=== PATIENT | male | born 1940 | race Caucasian/White ===

== ENCOUNTER → 2016-10-24 | Outpatient (CLI) | payer MEDICARE, BC ==
[2016-10-24 09:11] LABS: CH 31.3; CHCM 34.3; HCT 41.6 % (39.0-53.0); HGB 14.8 gm/dL (13.0-17.5); MCH 32.6 pg (25.0-35.0); MCHC 35.5 g/dL (31.0-37.0); MCV 91.6 fL (80.0-100.0); RBC 4.53 m/uL (4.30-5.90); RDW 13.1 % (11.5-15.5); WBC 4.5 k/uL (3.8-10.6)
[2016-10-24 09:14] LABS: Anion Gap 8 mmol/L; Blood Urea Nitrogen 24 mg/dL (9-20); Carbon Dioxide 27 mmol/L (22-30); Chloride 107 mmol/L (98-107); Non-African American GFR(MDRD) >60 (>60 ml/min/1.73 sqM); Potassium 4.1 mmol/L (3.5-5.1); Sodium 142 mmol/L (137-145)
== END ==
LOC: LABWHC1 08:24
PROVIDERS: ATTEND Internal Medicine Interventional Cardiology
DX: I25.10 Atherosclerotic heart disease of native coronary artery without angina pectoris (principal)
CPT/HCPCS: 36415; 80051; 82565; 84520; 85027

== ENCOUNTER 2016-11-03 07:42 | Day surgery (SDC) | payer MEDICARE, BC ==
[2016-10-31 08:45] VITALS: BMI 32.0
[~2016-11-03 07:42] MED LIST: ALPRAZolam 0.25 MG TAB PO PRN; ALPRAZolam 0.5 MG TAB PO PRN; ASPIRIN 325 MG TAB PO STA; ATORVASTATIN 80 MG TAB PO STA; NITROGLYCERIN SL TABS 0.4 MG TAB SUBLINGUAL PRN; SODIUM CHLORIDE 0.9% 1,000 ML in EMPTY BAG 1 BAG IV ONE
[2016-11-03 08:31] VITALS: PULSE 67; TEMP 97.5
[2016-11-03] MEDS ORDERED: LIDOCAINE 2% INJ 20 MG/ML (20 ML MDV) ONE (08:42)
[2016-11-03] MEDS ORDERED: MIDAZOLAM 2 MG/2 ML VIAL ONE (08:42)
[2016-11-03] MEDS ORDERED: VERAPAMIL 2.5 MG/ML 2 ML AMP ONE (08:42)
[2016-11-03] MEDS ORDERED: MIDAZOLAM 2 MG/2 ML VIAL IV ONE (10:04)
[2016-11-03] MEDS ORDERED: LIDOCAINE 2% INJ 20 MG/ML SQ ONE (10:06)
[2016-11-03] MEDS ORDERED: HEPARIN SODIUM 1,000 UNIT/ML VIAL ONE (10:07)
[2016-11-03] MEDS ORDERED: VERAPAMIL SYRINGE (5 MG/10 ML) INTRAARTER ONE ×2 (10:08→10:31)
[2016-11-03] MEDS ORDERED: IOHEXOL 350 MG/ML 125ML BOTTLE INJ ONE (10:33)
[2016-11-03] MEDS ORDERED: RX INFO: IV CONTRAST WAS GIVEN 1 EACH MISC MISCELLANE PRN (10:38)
[2016-11-03] MEDS ORDERED: SODIUM CHLORIDE 0.9% 1,000 ML IV SCH (10:45)
[2016-11-03 16:50] VITALS: RESP 20
[2016-11-03 16:51] VITALS: BP 117/64
--- NOTE | 2016-11-03 22:31 | CC ---
DATE OF SERVICE: 11/03/2016 PERFORMING PHYSICIAN: Justen Ricardo M.D., instructor business education. PROCEDURE PERFORMED: Selective right and left coronary angiogram. INDICATION: This is a pleasant 75-year-old gentleman who was experiencing chest discomfort and underwent myocardial perfusion imaging stress test which showed apical ischemia. The decision was made for heart catheterization. APPROACH: Right radial artery. COMPLICATIONS: None. LEVEL OF SEDATION: Moderate with a sedation length of 29 minutes. PROCEDURE DESCRIPTION: After obtaining informed consent, the patient was brought to the cardiac laboratory immunologist. The right radial artery was cannulated using micropuncture technique. The micropuncture wire passed easily. Then I placed a 6 [place] sheath in the right radial artery. Subsequently I did selective right and left coronary angiogram using JR4 and JL3.5 catheters. The procedure was completed without any complication. SELECTIVE CORONARY ANGIOGRAM: 1. The right coronary artery is a large-caliber vessel. It is a dominant vessel. It is angiographically normal. It bifurcates into PDA and PLV branches; both are angiographically normal. 2. The left main is angiographically normal. It bifurcates into left circumflex and left anterior descending artery. The left circumflex is a large-caliber vessel and a non-dominant vessel. The proximal circumflex appeared to be angiographically normally. The mid circumflex appeared to have mild disease only. The left circumflex in the mid portion gives rise to an OM branch which has an intermediate lesion that appeared to be in the range of 50%. The circumflex continues after that as a small-caliber vessel in the AV groove. 3. Left anterior descending artery. The proximal LAD appeared to have mild disease only. The mid LAD appeared to have mild disease only and gives rise to 2 medium-sized diagonal branches that appeared to be angiographically normal. The LAD continues after that as a small- to medium-caliber vessel without any high-grade stenosis. 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 POST-PROCEDURE MANAGEMENT: 1. Maximize medical treatment. 2. Follow up with the patient.
== END 2016-11-03 16:35 | disposition home or self-care (01) ==
LOC: CATHCVL 07:42
PROVIDERS: ATTEND Internal Medicine Interventional Cardiology
DX: I25.110 Atherosclerotic heart disease of native coronary artery with unstable angina pectoris (principal); R07.89 Other chest pain; R94.39 Abnormal result of other cardiovascular function study; I10 Essential (primary) hypertension; I73.9 Peripheral vascular disease, unspecified; Z79.82 Long term (current) use of aspirin; Z79.899 Other long term (current) drug therapy
CPT/HCPCS: 93454; 99152; 99153; C1769 ×3; C1894; J2001; J2250; J1642; J1644; Q9967

== ENCOUNTER 2016-12-01 10:46 | Day surgery (SDC) | payer MEDICARE, BC ==
[2016-11-27 10:51] VITALS: BMI 32.5
[~2016-12-01 10:46] MED LIST changes: -ALPRAZolam 0.5 MG TAB PO PRN; -ATORVASTATIN 80 MG TAB PO STA; -NITROGLYCERIN SL TABS 0.4 MG TAB SUBLINGUAL PRN
[2016-12-01 11:12] VITALS: RESP 16; TEMP 97.9
[2016-12-01] MEDS ORDERED: SODIUM CHLORIDE 0.9% 1,000 ML IV ONE (11:15)
[2016-12-01 11:25] LABS: Basophils # (A) 0.1 k/uL (0-0.2); Basophils % (A) 1 %; CH 31.1; Eosinophils # (A) 0.4 k/uL (0-0.7); Eosinophils % (A) 7 %; HCT 43.8 % (39.0-53.0); HGB 14.8 gm/dL (13.0-17.5); Luc # (Auto) 0.11; Luc % (Auto) 2; Lymphocytes # (A) 1.3 k/uL (1.0-4.8); Lymphocytes % (A) 20 %; MCH 31.1 pg (25.0-35.0); MCHC 33.9 g/dL (31.0-37.0); MCV 91.8 fL (80.0-100.0); Mean Platelet Volume 7.3; Monocytes # (A) 0.3 k/uL (0-1.0); Monocytes % (A) 5 %; Neutrophils % (A) 65 %; RBC 4.77 m/uL (4.30-5.90); RDW 13.3 % (11.5-15.5); WBC 6.2 k/uL (3.8-10.6); WBC (Perox) 5.94
[2016-12-01 11:38] LABS: Anion Gap 9 mmol/L; Blood Urea Nitrogen 23 mg/dL (9-20); Calcium 9.1 mg/dL (8.4-10.2); Carbon Dioxide 23 mmol/L (22-30); Chloride 108 mmol/L (98-107); Glucose 102 mg/dL (74-99); Non-African American GFR(MDRD) >60 (>60 ml/min/1.73 sqM); Potassium 4.2 mmol/L (3.5-5.1); Sodium 140 mmol/L (137-145)
[2016-12-01] MEDS ORDERED: MIDAZOLAM 2 MG/2 ML VIAL IVP ONE (11:50)
[2016-12-01] MEDS ORDERED: LIDOCAINE 2% INJ 20 MG/ML SQ ONE (11:55)
[2016-12-01] MEDS: VERAPAMIL SYRINGE (5 MG/10 ML) INTRAARTER ONE ×2 (11:55→12:17)
[2016-12-01] MEDS ORDERED: HEPARIN SODIUM 1,000 UNIT/ML VIAL IV ONE (12:00)
[2016-12-01] MEDS ORDERED: IODIXANOL 320 MG/ML 100 ML INTRAARTER ONE (12:19)
[2016-12-01] MEDS ORDERED: SODIUM CHLORIDE 0.9% 1,000 ML IV SCH (12:30)
[2016-12-01 17:09] VITALS: PULSE 69
[2016-12-01 17:11] VITALS: BP 138/77
--- NOTE | 2016-12-02 06:05 | PCN ---
DATE OF PROCEDURE: 12/01/2016 PERIPHERAL ANGIOGRAM PERFORMING PHYSICIAN: Justen Ricardo MD, watershed program manager. PROCEDURE PERFORMED: 1. An abdominal aortogram. 2. Bilateral lower extremity runoff. INDICATION: This is a pleasant 75-year-old male patient who was experiencing bilateral lower extremity discomfort consistent with intermittent claudication. The angiogram for definitive diagnosis. APPROACH: Right radial artery. COMPLICATIONS: None. LEVEL OF SEDATION: Moderate with a sedation length of 25 minutes. PROCEDURE DESCRIPTION: After obtaining an informed consent, the patient was brought to the cardiac mechanical laboratory technician. Right radial artery was cannulated using micropuncture technique. The micropuncture wire passed easily, then I placed 5 [place]ian sheath in the right radial artery. Subsequently I gave the patient 2 mg of verapamil IA and 3000 of heparin IV. After that, I did an abdominal aortogram and bilateral lower extremity runoff using 5 Bel[place]ian pigtail catheter which was initially placed at the level of the renal arteries and it was advanced into above the bifurcation of the aorta to right and left common iliac arteries. The procedure was completed without any complication. SELECTIVE PERIPHERAL ANGIOGRAM: 1. The aorta is angiographically normal. 2. Common iliac arteries: The right and left common iliac arteries are angiographically normal. 3. External iliac arteries: The right and left external iliac arteries are angiographically normal. 4. Common femoral arteries: The right and left common femoral arteries are angiographically normal. 5. PROFUNDA: The right and left profunda are angiographically normal. 6. SFA: The right and left SFA are angiographically normal. 7. POPLITEALS: The right and left popliteals are angiographically normal. 8. BELOW THE KNEE: There are 3 vessels runoff below the knee bilaterally. The left anterior tibia artery has disease in the midportion of about 60% to 70%. CONCLUSION: 1. No evidence of aortoiliac disease. 2. No evidence of fem-pop disease. 3. There is intermediate disease involving the left anterior tibial artery.
--- NOTE | 2016-12-10 08:21 | IR ---
EXAMINATION TYPE: IR angio abdominal w runoff DATE OF EXAM: 12/01/2016 COMPARISON: NONE HISTORY: Peripheral vascular occlusive disease. Fluoroscopy was provided to the referring clinician. See dictated report from cardiology.
== END 2016-12-01 18:38 | disposition home or self-care (01) ==
LOC: CATHCVL 10:46
PROVIDERS: ATTEND Internal Medicine Interventional Cardiology
DX: I77.9 Disorder of arteries and arterioles, unspecified (principal); I73.9 Peripheral vascular disease, unspecified; I10 Essential (primary) hypertension; E78.5 Hyperlipidemia, unspecified; R94.39 Abnormal result of other cardiovascular function study; Z90.5 Acquired absence of kidney; C80.1 Malignant (primary) neoplasm, unspecified; Z79.82 Long term (current) use of aspirin; Z79.899 Other long term (current) drug therapy
CPT/HCPCS: 36200; 75625; 75716; 80048; 85025; 99152; 99153; C1769 ×3; C1894; J2001; J2250; Q9967; J1644

== ENCOUNTER → 2018-03-25 | Outpatient (CLI) | payer MEDICARE, BC ==
--- NOTE | 2018-03-25 16:28 | FL ---
EXAMINATION: Cervical and Thoracic Esophagram DATE OF EXAM: 03/25/2018 CLINICAL INDICATION: 77-year-old male complaining of heartburn, feeling of food getting stuck, dyspha nadia. COMPARISON: None Total Fluoroscopy Time: 2 minutes 23 seconds. Total images: 40 FINDINGS: The swallowing mechanism is normal. There is anterior endplate spondylosis in the cervical spine caus ing slight posterior wall impression along the hypopharynx. No obstructive changes. The thoracic portion has a normal course and caliber. Mild tertiary peristaltic contractions are enco untered. The mucosa is normal and no persistent filling defect is encountered. No hiatal hernia is present. No gastroesophageal reflux is identified. IMPRESSION: Mild tertiary peristaltic contractions. No suspicious mucosal lesion, fixed narrowing, or hiatal michael ia is identified. Gastroesophageal reflux could not be reproduced on this exam.
== END ==
LOC: RADFLWHC 09:27
PROVIDERS: ATTEND Otolaryngology
DX: R13.10 Dysphagia, unspecified (principal)
CPT/HCPCS: 74220

== ENCOUNTER → 2022-11-20 | Outpatient (CLI) | payer MEDICARE, OTHER ==
[2022-11-20 15:06] LABS: Basophils # (A) 0.07 X 10*3/uL (0.00-0.10); Basophils % (A) 1.1 %; Eosinophils # (A) 0.25 X 10*3/uL (0.04-0.35); Eosinophils % (A) 4.1 %; HCT 39.6 % (39.6-50.0); HGB 12.9 g/dL (13.0-17.0); Immature Grans, Automated 0.2 %; Lymphocytes # (A) 0.98 X 10*3/uL (0.90-5.00); Lymphocytes % (A) 15.9 %; MCH 31.8 pg (27.0-32.0); MCHC 32.6 g/dL (32.0-37.0); MCV 97.5 fL (80.0-97.0); Mean Platelet Volume 10.7 fL (9.5-12.2); Monocytes # (A) 0.45 X 10*3/uL (0.20-1.00); Monocytes % (A) 7.3 %; NRBC Per 100 WBC 0 /100 WBCS (0.0-0.0); Neutrophils # (A) 4.39 X 10*3/uL (1.80-7.70); Neutrophils % (A) 71.4 %; Platelet Count 161 X 10*3/uL (140-440); RBC 4.06 X 10*6/uL (4.40-5.60); RDW 14.3 % (11.5-14.5); WBC 6.15 X 10*3/uL (4.50-10.00)
[2022-11-20 15:44] LABS: Ceruloplasmin 22.7 mg/dL (20.0-60.0)
[2022-11-20 15:46] LABS: Protein, Total 6.5 g/dL (6.2-8.2)
[2022-11-20 15:57] LABS: Hepatitis A Antibody IgM Nonreactive (Nonreactive); Hepatitis B Core IgM Nonreactive (Nonreactive); Hepatitis B Surface Antigen Nonreactive (Nonreactive); Hepatitis C IgG Antibody Nonreactive (Nonreactive)
[2022-11-20 23:45] LABS: % Iron Saturation 48.48 (15.00-50.00); African American GFR (CKD) 93.2 (60.0-200.0); Albumin 3.4 g/dL (3.8-4.9); Albumin/Globulin Ratio 1.19 (1.60-3.17); Anion Gap 12.5 mmol/L (10.00-18.00); BUN/Creat Ratio 14.02 Ratio (12.00-20.00); Blood Urea Nitrogen 12.2 mg/dL (9.0-27.0); Calcium 8.8 mg/dL (8.7-10.3); Carbon Dioxide 21.5 mmol/L (20.0-27.5); Globulin 2.8 g/dL (1.6-3.3); Non-African American GFR(CKD) 80.4 (60.0-200.0); Potassium 4.3 mmol/L (3.5-5.5); Total Bilirubin 1.6 mg/dL (0.30-1.20); Total Protein 6.2 g/dL (6.2-8.2)
[2022-11-21 19:30] LABS: Gamma Globulin 1.53 g/dL (0.70-1.50)
== END | disposition home or self-care (01) ==
LOC: LABWHC1 11:35
PROVIDERS: ATTEND Internal Medicine Gastroenterology
DX: K74.60 Unspecified cirrhosis of liver (principal)
CPT/HCPCS: 36415; 80053; 80074; 82103; 82104; 82105; 82390; 82728; 83516; 83540; 83550; 84165; 85025; 86038; 86039; 86803; 87340

== ENCOUNTER → 2023-03-09 | Outpatient (CLI) | payer MEDICARE, OTHER ==
[2023-03-09 21:24] LABS: Basophils # (A) 0.04 X 10*3/uL (0.00-0.10); Basophils % (A) 0.9 %; Eosinophils # (A) 0.32 X 10*3/uL (0.04-0.35); Eosinophils % (A) 6.8 %; HCT 36.2 % (39.6-50.0); HGB 12.1 d/dL (13.0-17.0); Lymphocytes # (A) 0.77 X 10*3/uL (0.90-5.00); Lymphocytes % (A) 16.4 %; MCH 33.1 pg (27.0-32.0); MCHC 33.4 d/dL (32.0-37.0); MCV 98.9 FL (80.0-97.0); Mean Platelet Volume 11.4 FL (9.5-12.2); Monocytes # (A) 0.36 X 10*3/uL (0.20-1.00); Monocytes % (A) 7.7 %; NRBC Per 100 WBC 0 X 10*3/uL (0.00-0.01); Neutrophils # (A) 3.18 X 10*3/uL (1.80-7.70); Neutrophils % (A) 67.8 %; Platelet Count 121 X 10*3/uL (140-440); RBC 3.66 X 10*6/uL (4.40-5.60); RDW 14.2 % (11.5-14.5); WBC 4.69 X 10*3/uL (4.50-10.00)
[2023-03-09 21:43] LABS: ALT 58 U/L (10-49); AST 81 U/L (14-35); Albumin 3.2 d/dL (3.8-4.9); Albumin/Globulin Ratio 1.23 Ratio (1.60-3.17); Alkaline Phosphatase 217 U/L (41-126); BUN/Creat Ratio 19.56 Ratio (12.00-20.00); Blood Urea Nitrogen 17.6 mg/dL (9.0-27.0); Calcium 8.9 mg/dL (8.7-10.3); Carbon Dioxide 23.1 mmol/L (21.6-31.8); Chloride 109 mmol/L (96-109); Globulin 2.6 d/dL (1.6-3.3); Glucose 96 mg/dL (70-110); Potassium 4.2 mmol/L (3.5-5.5); Sodium 141 mmol/L (135-145); Total Bilirubin 1.3 mg/dL (0.3-1.2); Total Protein 5.8 d/dL (6.2-8.2)
== END | disposition home or self-care (01) ==
LOC: LABWHC1 13:43
PROVIDERS: ATTEND Internal Medicine Gastroenterology
DX: K74.60 Unspecified cirrhosis of liver (principal)
CPT/HCPCS: 36415; 80053; 82105; 83516; 85025

== ENCOUNTER 2023-05-22 08:59 | Inpatient (IN) | payer MEDICARE, OTHER ==
--- NOTE | 2023-05-22 10:26 | CT ---
EXAMINATION TYPE: CT brain wo con DATE OF EXAM: 05/22/2023 COMPARISON: None HISTORY: Left sided weakness CT DLP: 1183.[address] of the brain was performed. The ventricles, basal cisterns and sulci overlying the cerebral convexities demonstrate mild enlargem ent. There is no evidence for intracranial hemorrhage or sulcal effacement. There is decreased attenuation about the periventricular white matter and deep white matter of both c erebral hemispheres, compatible with chronic small vessel ischemia. Differential diagnosis does inclu de demyelination. No mass effects are seen.No midline shift. Osseous calvarium is intact. If symptoms persist consider MRI. IMPRESSION: 1. Age related atrophic and chronic small vessel ischemic change without acute intracranial process s een at this time.
--- NOTE | 2023-05-22 10:36 | XR ---
EXAMINATION TYPE: XR chest 2V DATE OF EXAM: 05/22/2023 COMPARISON: 04/10/2010 HISTORY: Shortness of breath TECHNIQUE: Frontal and lateral views of the chest are obtained. FINDINGS: Scattered senescent parenchymal changes noted. Increased basilar density may reflect atelectasis and small effusions. Fluid within the right minor f issure versus linear atelectasis. Heart size is stable. Mediastinal structures are stable and grossly unremarkable. No evidence for hilar prominence. Degenerative changes dorsal spine. IMPRESSION: 1. Increased basilar density may reflect atelectasis and small effusions. Fluid within the right tarik r fissure versus linear atelectasis.
[2023-05-22 10:39] LABS: Basophils % (A) 1 %; Eosinophils # (A) 0.3 k/uL (0-0.7); Eosinophils % (A) 5 %; HGB 12.2 gm/dL (13.0-17.5); Lymphocytes # (A) 0.7 k/uL (1.0-4.8); Lymphocytes % (A) 12 %; MCH 33.6 pg (25.0-35.0); MCHC 32.9 g/dL (31.0-37.0); Macrocytosis Slight; Mean Platelet Volume 8.4; Monocytes # (A) 0.4 k/uL (0-1.0); Monocytes % (A) 7 %; Neutrophils # (A) 4.2 k/uL (1.3-7.7); Neutrophils % (A) 74 %; Platelet Count 114 k/uL (150-450); RBC 3.62 m/uL (4.30-5.90); RDW 14.5 % (11.5-15.5); WBC 5.7 k/uL (3.8-10.6)
--- NOTE | 2023-05-22 10:51 | ED ---
General Adult HPI - General Source: patient, family Mode of arrival: wheelchair Limitations: no limitations <Jeffrey Hurt - Last Filed: 05/22/23 10:52> - General Source: patient, family, RN notes reviewed Mode of arrival: wheelchair Limitations: no limitations <Aleida Alves - Last Filed: 05/22/23 17:16> - General Chief complaint: Weakness Stated complaint: Left side weakness Time Seen by Provider: 05/22/23 10:51 - History of Present Illness Initial comments: 82-year-old male presenting to the ED with a chief complaint of generalized weakness. Per son and patient, was working underneath the sink 2 weeks ago. At that time, notes that he was unable to get up due to generalized weakness. [facility] since then has had this generalized weakness causing him difficulty doing activities of daily living. Son notes that he is having difficulty standing up from the toilet. Additionally, patient states today he is having difficulty urinating. Patient states he is not circumcised. Patient states that his foreskin is blocking his urethra. States that he tried pulling his foreskin back with was unable to do so. Additionally, patient states that he's had intermittent paresthesias and weakness of his arm for the past 2 weeks. Per son, denies confusion. States patient is acting his normal self. (Jeffrey Hurt) In addition to the information above, patient states that he has been increasingly short of breath over the last 2 weeks. He is unable to walk more than a few feet without having to stop and catch his breath. States that he is also becoming short of breath just with conversation. Denies any associated chest pain. States that he does have a history of asthma. (Aleida Alves) - Related Data Home Medications Medication Instructions Recorded Confirmed Albuterol Sulfate [Proventil Hfa] 2 puff INHALATION RT-Q4H PRN 05/22/23 05/22/23 Apixaban [Eliquis] 5 mg PO BID 05/22/23 05/22/23 Metoprolol Tartrate [Lopressor] 25 mg PO BID 05/22/23 05/22/23 Spironolactone [Aldactone] 25 mg PO DAILY 05/22/23 05/22/23 Allergies Allergy/AdvReac Type Severity Reaction Status Date / Time acetaminophen [From [facility]] Allergy "pus in Verified 05/22/23 16:00 eyes" adhesive tape Allergy Rash/Hives Verified 05/22/23 16:00 chlorpheniramine Allergy "pus in Verified 05/22/23 16:00 [From [facility]] eyes" cortisone Allergy Unknown Verified 05/22/23 16:00 gemfibrozil Allergy muscle pain Verified 05/22/23 16:00 oxymetazoline [From [facility]] Allergy "pus in Verified 05/22/23 16:00 eyes" pheniramine [From [facility]] Allergy "pus in Verified 05/22/23 16:00 eyes" phenylephrine [From [facility]] Allergy "pus in Verified 05/22/23 16:00 eyes" pseudoephedrine Allergy "pus in Verified 05/22/23 16:00 [From Kaiden] eyes" Review of Systems ROS Other: All systems not noted in ROS Statement are negative. <Jeffrey Hurt - Last Filed: 05/22/23 10:52> ROS Other: All systems not noted in ROS Statement are negative. <Aleida Alves - Last Filed: 05/22/23 17:16> ROS Statement: Those systems with pertinent positive or pertinent negative responses have been documented in the HPI. Past Medical History Past Medical History: Asthma, Cancer, Chest Pain / Angina, GERD/Reflux, Hyperlipidemia, Hypertension, Osteoarthritis (OA), Skin Disorder, Thyroid Disorder Additional Past Medical History / Comment(s): poor circulation terri legs, hx hiatal hernia, gout, hx gastritis, fungal infection on toes, fatigue, hx rt kidney cancer, has a cane, swelling of terri ankles, liver cirohsis, History of Any Multi-Drug Resistant Organisms: None Reported Past Surgical History: Adenoidectomy, Heart Catheterization, Orthopedic Surgery, Tonsillectomy Additional Past Surgical History / Comment(s): right nephrectomy, rt knee arthroscopy Past Anesthesia/Blood Transfusion Reactions: Motion Sickness Past Psychological History: No Psychological Hx Reported Smoking Status: Former smoker Past Alcohol Use History: Occasional, Rare Past Drug Use History: None Reported - Past Family History Brother(s) Family Medical History: Cancer Father Family Medical History: Cancer <Jeffrey Hurt - Last Filed: 05/22/23 10:52> General Exam Limitations: no limitations General appearance: alert, in no apparent distress Eye exam: Present: normal appearance Neck exam: Present: normal inspection Extremities exam: Present: normal inspection Neurological exam: Present: alert <Jeffrey Hurt - Last Filed: 05/22/23 10:52> Limitations: no limitations General appearance: alert, in no apparent distress Head exam: Present: atraumatic, normocephalic, normal inspection Respiratory exam: Present: wheezes, decreased breath sounds, prolonged expiratory Cardiovascular Exam: Present: normal rhythm, tachycardia Neurological exam: Present: alert, oriented X3, CN II-XII intact Psychiatric exam: Present: normal affect, normal mood Skin exam: Present: warm, dry, intact, normal color. Absent: rash <Aleida Alves - Last Filed: 05/22/23 17:16> Course Vital Signs 05/22/23 05/22/23 05/22/23 09:02 11:08 11:30 Temperature 97.5 F L Pulse Rate 124 H 122 H Respiratory 20 24 13 Rate Blood Pressure 157/77 131/87 O2 Sat by Pulse 99 98 Oximetry 05/22/23 05/22/23 05/22/23 12:00 13:00 13:46 Temperature Pulse Rate 122 H 121 H 120 H Respiratory 14 20 20 Rate Blood Pressure 131/87 117/78 136/83 O2 Sat by Pulse 96 98 98 Oximetry 05/22/23 05/22/23 15:00 16:00 Temperature Pulse Rate 121 H 121 H Respiratory 20 20 Rate Blood Pressure 134/78 132/99 O2 Sat by Pulse 98 98 Oximetry Medical Decision Making - Lab Data Result diagrams: 05/22/23 10:15 <Jeffrey Hurt - Last Filed: 05/22/23 10:52> - Lab Data Result diagrams: 05/22/23 10:15 05/22/23 10:15 - Radiology Data Radiology results: report reviewed, image reviewed <Aleida Alves - Last Filed: 05/22/23 17:16> - Medical Decision Making Quicknote portion performed. Signed Jeffrey Hurt PA-C (Jeffrey Hurt) This is an 82-year-old male who presents to the emergency department for weakness and shortness of breath. Was pt. sent in by a medical professional or institution? @ -No Did you speak to anyone other than the patient for history? @ -No Did you review nursing and triage notes? @ -Yes, and I agree, it is accurate with regards to the patient's symptoms. Were old charts reviewed? @ -No Differential Diagnosis? @ -Differential Dyspnea: Coronary syndrome, arrhythmia, tamponade, asthma, COPD, pulmonary embolism, pneumonia, pneumothorax, pulmonary effusion, anaphylaxis, diabetic ketoacidosis, flailed chest, pulmonary contusion, diaphragmatic rupture, anemia, neuromuscular, this is not meant to be an all-inclusive list. EKG interpreted by me (3pts min.)? @ -EKG interpreted by me demonstrating the following: Sinus tachycardia. Ventricular rate 118 bpm, AL interval 105 ms, QRS duration 93 ms, QTC 492 ms. X-rays interpreted by me (1pt min.)? @ -Chest x-ray obtained. Hydration identifies increased basilar densities. CT interpreted by me (1pt min.)? @ -CTA of the chest obtained. My interpretation identifies bilateral pleural effusions. U/S interpreted by me (1pt. min.)? @ -Not obtained What testing was considered but not performed? (CT, X-rays, U/S, labs)? Why? @ -None What meds were considered but not given? Why? @ -None Did you discuss the management of the patient with other professionals? @ -Yes, Dr. Ascencio, who accepts the patient for admission. Did you reconcile home meds? @ -Yes Was smoking cessation discussed for >3mins.? @ -No Was critical care preformed (if so, how long)? @ -No Were there social determinants of health that impacted care today? How? (Homelessness, low income, unemployed, alcoholism, drug addiction, transportation, low edu. Level, literacy, decrease access to med. care, long-term, rehab)? @ -No Was there de-escalation of care discussed even if they declined? (Discuss DNR or withdrawal of care, Hospice)? @ -No What co-morbidities impacted this encounter? (DM, HTN, Smoking, COPD, CAD, Cancer, CVA, Hep., AIDS, mental health diagnosis, sleep apnea, morbid obesity)? @ -Asthma, CAD, HTN, HLD Was patient admitted / discharged? @ -Admitted. Lab work obtained revealing an elevated d-dimer of 5.07, mildly elevated lactic acid 2.3, mild transaminitis, and a BNP of 3080. Chest x-ray reveals increased basilar density that may reflect atelectasis or small effusi ons. Patient remained tachycardic in the emergency department, and in light of his symptoms and elevated d-dimer, CTA of the chest was obtained. There was a slightly suboptimal contrast bolus and limitation due to breathing motion, however no evidence of a pulmonary embolus was identified. He was noted to have findings consistent with CHF and mild interstitial edema as well as small to moderate right and small left pleural effusions. There is also adjacent bibasilar opacities most likely related to atelectasis, however infiltrates cannot be excluded. He also has markedly generalized anasarca likely related to fluid overload state as well as mild to moderate upper abdominal ascites. Yenny lopez was initially unsure if he has a history of CHF, however when his son returned to the room, he states that he believes that he was diagnosed with this 6 months ago. He is not taking Lasix with any regularity, but states that he took it once about a week ago because he had a pill leftover. Nursing staff had trouble getting a Barreto catheter in the patient due to the swelling, however Dr. Alejandre evaluated the patient and was able to find the urethra so nursing staff could insert the Barreto. Urinalysis was negative for signs of infection. Patient admitted to medicine for CHF exacerbation. Consult placed for cardiology. 40mg IV Lasix administered. Undiagnosed new problem with uncertain prognosis? @ -None Drug Therapy requiring intensive monitoring for toxicity (Heparin, Nitro, Insulin, Cardizem)? @ -None Were any procedures done? @ -None Diagnosis/symptom? @ -CHF exacerbation Acute, or Chronic, or Acute on Chronic? @ -Acute on chronic Uncomplicated (without systemic symptoms) or Complicated (systemic symptoms)? @ -Complicated Side effects of treatment? @ -None Exacerbation, Progression, or Severe Exacerbation] @ -Exacerbation Poses a threat to life or bodily function? @ -Yes Diagnosis/symptom? @ -Weakness, REGGIE Acute, or Chronic, or Acute on Chronic? @ -Acute Uncomplicated (without systemic symptoms) or Complicated (systemic symptoms)? @ -Complicated Side effects of treatment? @ -None Exacerbation, Progression, or Severe Exacerbation] @ -Not applicable Poses a threat to life or bodily function? @ -Yes This case was discussed in detail with the attending ED physician, Dr. Alejandre. Presentation, findings, and treatment plan discussed in detail as well. (Aleida Alves) - Lab Data Lab Results 05/22/23 05/22/23 05/22/23 Range/Units 10:15 10:15 10:15 WBC 5.7 (3.8-10.6) k/uL RBC 3.62 L (4.30-5.90) m/uL Hgb 12.2 L (13.0-17.5) gm/dL Hct 37.0 L (39.0-53.0) % MCV 102.0 H (80.0-100.0) fL MCH 33.6 (25.0-35.0) pg MCHC 32.9 (31.0-37.0) g/dL RDW 14.5 (11.5-15.5) % Plt Count 114 L (150-450) k/uL MPV 8.4 Neutrophils % 74 % Lymphocytes % 12 % Monocytes % 7 % Eosinophils % 5 % Basophils % 1 % Neutrophils # 4.2 (1.3-7.7) k/uL Lymphocytes # 0.7 L (1.0-4.8) k/uL Monocytes # 0.4 (0-1.0) k/uL Eosinophils # 0.3 (0-0.7) k/uL Basophils # 0.0 (0-0.2) k/uL Macrocytosis Slight PT 14.4 H (10.0-12.5) sec INR 1.4 H (<1.2) APTT 28.8 (22.0-30.0) sec D-Dimer (<0.60) mg/L FEU Sodium (137-145) mmol/L Potassium (3.5-5.1) mmol/L Chloride (98-107) mmol/L Carbon Dioxide (22-30) mmol/L Anion Gap mmol/L BUN (9-20) mg/dL Creatinine (0.66-1.25) mg/dL Est GFR (CKD-EPI)AfAm (>60 ml/min/1.73 sqM) Est GFR (CKD-EPI)NonAf (>60 ml/min/1.73 sqM) Glucose (74-99) mg/dL Lactic Ac Sepsis Rflx Plasma Lactic Acid Gavin (0.7-2.0) mmol/L Calcium (8.4-10.2) mg/dL Total Bilirubin (0.2-1.3) mg/dL AST (17-59) U/L ALT (4-49) U/L Alkaline Phosphatase (38-126) U/L Troponin I (0.000-0.034) ng/mL NT-Pro-B Natriuret Pep pg/mL Total Protein (6.3-8.2) g/dL Albumin (3.5-5.0) g/dL Urine Color Yellow Urine Appearance Clear (Clear) Urine pH 5.5 (5.0-8.0) Ur Specific [place] 1.047 H (1.001-1.035) Urine Protein Trace H (Negative) Urine Glucose (UA) Negative (Negative) Urine Ketones Negative (Negative) Urine Blood Negative (Negative) Urine Nitrite Negative (Negative) Urine Bilirubin Negative (Negative) Urine Urobilinogen <2.0 (<2.0) mg/dL Ur Leukocyte Esterase Negative (Negative) Influenza Type A (PCR) (Not Detectd) Influenza Type B (PCR) (Not Detectd) RSV (PCR) (Not Detectd) SARS-CoV-2 (PCR) (Not Detectd) 05/22/23 05/22/23 05/22/23 Range/Units 10:15 10:15 10:15 WBC (3.8-10.6) k/uL RBC (4.30-5.90) m/uL Hgb (13.0-17.5) gm/dL Hct (39.0-53.0) % MCV (80.0-100.0) fL MCH (25.0-35.0) pg MCHC (31.0-37.0) g/dL RDW (11.5-15.5) % Plt Count (150-450) k/uL MPV Neutrophils % % Lymphocytes % % Monocytes % % Eosinophils % % Basophils % % Neutrophils # (1.3-7.7) k/uL Lymphocytes # (1.0-4.8) k/uL Monocytes # (0-1.0) k/uL Eosinophils # (0-0.7) k/uL Basophils # (0-0.2) k/uL Macrocytosis PT (10.0-12.5) sec INR (<1.2) APTT (22.0-30.0) sec D-Dimer (<0.60) mg/L FEU Sodium 141 (137-145) mmol/L Potassium 4.2 (3.5-5.1) mmol/L Chloride 107 (98-107) mmol/L Carbon Dioxide 26 (22-30) mmol/L Anion Gap 8 mmol/L BUN 17 (9-20) mg/dL Creatinine 0.76 (0.66-1.25) mg/dL Est GFR (CKD-EPI)AfAm >90 (>60 ml/min/1.73 sqM) Est GFR (CKD-EPI)NonAf 85 (>60 ml/min/1.73 sqM) Glucose 88 (74-99) mg/dL Lactic Ac Sepsis Rflx Plasma Lactic Acid Gavin 2.3 H* (0.7-2.0) mmol/L Calcium 8.9 (8.4-10.2) mg/dL Total Bilirubin 2.7 H (0.2-1.3) mg/dL AST 83 H (17-59) U/L ALT 52 H (4-49) U/L Alkaline Phosphatase 186 H (38-126) U/L Troponin I 0.020 (0.000-0.034) ng/mL NT-Pro-B Natriuret Pep pg/mL Total Protein 6.8 (6.3-8.2) g/dL Albumin 3.3 L (3.5-5.0) g/dL Urine Color Urine Appearance (Clear) Urine pH (5.0-8.0) Ur Specific [place] (1.001-1.035) Urine Protein (Negative) Urine Glucose (UA) (Negative) Urine Ketones (Negative) Urine Blood (Negative) Urine Nitrite (Negative) Urine Bilirubin (Negative) Urine Urobilinogen (<2.0) mg/dL Ur Leukocyte Esterase (Negative) Influenza Type A (PCR) (Not Detectd) Influenza Type B (PCR) (Not Detectd) RSV (PCR) (Not Detectd) SARS-CoV-2 (PCR) (Not Detectd) 05/22/23 05/22/23 05/22/23 Range/Units 10:15 10:15 10:15 WBC (3.8-10.6) k/uL RBC (4.30-5.90) m/uL Hgb (13.0-17.5) gm/dL Hct (39.0-53.0) % MCV (80.0-100.0) fL MCH (25.0-35.0) pg MCHC (31.0-37.0) g/dL RDW (11.5-15.5) % Plt Count (150-450) k/uL MPV Neutrophils % % Lymphocytes % % Monocytes % % Eosinophils % % Basophils % % Neutrophils # (1.3-7.7) k/uL Lymphocytes # (1.0-4.8) k/uL Monocytes # (0-1.0) k/uL Eosinophils # (0-0.7) k/uL Basophils # (0-0.2) k/uL Macrocytosis PT (10.0-12.5) sec INR (<1.2) APTT (22.0-30.0) sec D-Dimer 5.07 H (<0.60) mg/L FEU Sodium (137-145) mmol/L Potassium (3.5-5.1) mmol/L Chloride (98-107) mmol/L Carbon Dioxide (22-30) mmol/L Anion Gap mmol/L BUN (9-20) mg/dL Creatinine (0.66-1.25) mg/dL Est GFR (CKD-EPI)AfAm (>60 ml/min/1.73 sqM) Est GFR (CKD-EPI)NonAf (>60 ml/min/1.73 sqM) Glucose (74-99) mg/dL Lactic Ac Sepsis Rflx Plasma Lactic Acid Gavin (0.7-2.0) mmol/L Calcium (8.4-10.2) mg/dL Total Bilirubin (0.2-1.3) mg/dL AST (17-59) U/L ALT (4-49) U/L Alkaline Phosphatase (38-126) U/L Troponin I (0.000-0.034) ng/mL NT-Pro-B Natriuret Pep 3080 pg/mL Total Protein (6.3-8.2) g/dL Albumin (3.5-5.0) g/dL Urine Color Urine Appearance (Clear) Urine pH (5.0-8.0) Ur Specific [place] (1.001-1.035) Urine Protein (Negative) Urine Glucose (UA) (Negative) Urine Ketones (Negative) Urine Blood (Negative) Urine Nitrite (Negative) Urine Bilirubin (Negative) Urine Urobilinogen (<2.0) mg/dL Ur Leukocyte Esterase (Negative) Influenza Type A (PCR) Not Detected (Not Detectd) Influenza Type B (PCR) Not Detected (Not Detectd) RSV (PCR) Not Detected (Not Detectd) SARS-CoV-2 (PCR) Not Detected (Not Detectd) 05/22/23 05/22/23 Range/Units 11:12 13:45 WBC (3.8-10.6) k/uL RBC (4.30-5.90) m/uL Hgb (13.0-17.5) gm/dL Hct (39.0-53.0) % MCV (80.0-100.0) fL MCH (25.0-35.0) pg MCHC (31.0-37.0) g/dL RDW (11.5-15.5) % Plt Count (150-450) k/uL MPV Neutrophils % % Lymphocytes % % Monocytes % % Eosinophils % % Basophils % % Neutrophils # (1.3-7.7) k/uL Lymphocytes # (1.0-4.8) k/uL Monocytes # (0-1.0) k/uL Eosinophils # (0-0.7) k/uL Basophils # (0-0.2) k/uL Macrocytosis PT (10.0-12.5) sec INR (<1.2) APTT (22.0-30.0) sec D-Dimer (<0.60) mg/L FEU Sodium (137-145) mmol/L Potassium (3.5-5.1) mmol/L Chloride (98-107) mmol/L Carbon Dioxide (22-30) mmol/L Anion Gap mmol/L BUN (9-20) mg/dL Creatinine (0.66-1.25) mg/dL Est GFR (CKD-EPI)AfAm (>60 ml/min/1.73 sqM) Est GFR (CKD-EPI)NonAf (>60 ml/min/1.73 sqM) Glucose (74-99) mg/dL Lactic Ac Sepsis Rflx Y Plasma Lactic Acid Gavin 1.6 (0.7-2.0) mmol/L Calcium (8.4-10.2) mg/dL Total Bilirubin (0.2-1.3) mg/dL AST (17-59) U/L ALT (4-49) U/L Alkaline Phosphatase (38-126) U/L Troponin I (0.000-0.034) ng/mL NT-Pro-B Natriuret Pep pg/mL Total Protein (6.3-8.2) g/dL Albumin (3.5-5.0) g/dL Urine Color Urine Appearance (Clear) Urine pH (5.0-8.0) Ur Specific [place] (1.001-1.035) Urine Protein (Negative) Urine Glucose (UA) (Negative) Urine Ketones (Negative) Urine Blood (Negative) Urine Nitrite (Negative) Urine Bilirubin (Negative) Urine Urobilinogen (<2.0) mg/dL Ur Leukocyte Esterase (Negative) Influenza Type A (PCR) (Not Detectd) Influenza Type B (PCR) (Not Detectd) RSV (PCR) (Not Detectd) SARS-CoV-2 (PCR) (Not Detectd) Disposition <Jeffrey Hurt - Last Filed: 05/22/23 10:52> <Aleida Alves - Last Filed: 05/22/23 17:16> Clinical Impression: CHF exacerbation, Weakness, Tachycardia Disposition: ADMITTED IP TO THIS HOSP
[2023-05-22 10:57] LABS: INR 1.4 (<1.2); Partial Thromboplastin Time 28.8 sec (22.0-30.0); Prothrombin Time 14.4 sec (10.0-12.5)
[2023-05-22 11:01] LABS: ALT 52 U/L (4-49); AST 83 U/L (17-59); African American GFR (CKD) >90 (>60 ml/min/1.73 sqM); Albumin 3.3 g/dL (3.5-5.0); Alkaline Phosphatase 186 U/L (38-126); Anion Gap 8 mmol/L; Blood Urea Nitrogen 17 mg/dL (9-20); Calcium 8.9 mg/dL (8.4-10.2); Carbon Dioxide 26 mmol/L (22-30); Chloride 107 mmol/L (98-107); Glucose 88 mg/dL (74-99); Non-African American GFR(CKD) 85 (>60 ml/min/1.73 sqM); Potassium 4.2 mmol/L (3.5-5.1); Sodium 141 mmol/L (137-145); Total Bilirubin 2.7 mg/dL (0.2-1.3); Total Protein 6.8 g/dL (6.3-8.2)
--- NOTE | 2023-05-22 13:27 | CT ---
EXAMINATION TYPE: CT chest angio for PE DATE OF EXAM: 05/22/2023 COMPARISON: Radiograph same day HISTORY: 82-year-old male Elevated d dimer, SOB TECHNIQUE: Contiguous axial scanning of the chest performed with IV Contrast, patient injected with 1 00 mL of Isovue 300. Coronal/sagittal MIP reconstructions performed. CT DLP: 593.7 mGycm Automated exposure control for dose reduction was used. FINDINGS: The heart is borderline in size without pericardial effusion. No flattening of the interventricular s eptum or reflux of contrast into the hepatic veins. LAD coronary artery calcifications. Aorta normal caliber with mild atelectatic arch calcifications. There is a direct takeoff of the left vertebral artery directly from the aortic arch. No thoracic lymphadenopathy by CT size criteria. Large caliber to the main right and left pulmonary arteries measuring up to 3.2 cm suggesting underly ing pulmonary hypertension. Borderline suboptimal contrast bolus and 220 Hounsfield units. Alignment for this limitation and john thing motion artifact, no definite pulmonary embolus is seen. There is a septal lines scattered throughout. Some mild groundglass in the lower lungs. Prominent vol ume loss at the basilar left lower lobe and patchy opacity inferior lingula. Marked generalized anasarca change. There is mild to moderate upper abdominal ascites. Possible under lying liver cirrhosis. Status post right nephrectomy with ascites fluid in the nephrectomy bed. Hilar splenule. Bones: Anterior endplate spondylosis mid to lower thoracic spine. IMPRESSION: 1. SLIGHTLY SUBOPTIMAL CONTRAST BOLUS AND ADDITIONAL LIMITATION DUE TO BREATHING MOTION ESPECIALLY IN THE LOWER LUNGS. NO DEFINITE PULMONARY EMBOLUS ALLOWING FOR THESE LIMITATIONS. 2. FINDINGS COMPATIBLE WITH CHF WITH MILD INTERSTITIAL EDEMA. [id number] RIGHT AND SMALL LEFT PLEURAL EFFUSIONS. ADJACENT BIBASILAR OPACITIES, LEFT GREATER THAN RIGHT, PROBABLY ATELECTASIS. CORRE LATE CLINICALLY TO EXCLUDE THE POSSIBILITY OF UNDERLYING INFILTRATES. 3. MARKED GENERALIZED ANASARCA CHANGE LIKELY RELATES TO THE FLUID OVERLOAD STATE. HOWEVER, THERE IS A LSO MILD TO MODERATE UPPER ABDOMINAL ASCITES FLUID. FURTHER APPROPRIATE WORKUP AND MANAGEMENT FOR POS SIBLE CIRRHOSIS.
[2023-05-22] MEDS ORDERED: FUROSEMIDE 10 MG/ML 4 ML VIAL IV STA (15:09)
[2023-05-22] MEDS ORDERED: METOPROLOL TARTRATE 25 MG TAB PO SCH (15:10)
[2023-05-22] MEDS ORDERED: NALOXONE 0.4 MG/ML 1 ML VIAL IV PRN (15:42)
[2023-05-22] MEDS ORDERED: ONDANSETRON 4 MG/2 ML VIAL IVP PRN (15:42)
[2023-05-22] MEDS ORDERED: ALBUTEROL NEBULIZED 2.5 MG/3 ML INHALATION PRN (16:03)
[2023-05-22] MEDS ORDERED: METOPROLOL TARTRATE 25 MG TAB PO STA (16:04)
[2023-05-22 16:57] LABS: Appearance,Urine Clear (Clear); Bilirubin,Urine Negative (Negative); Blood,Urine Negative (Negative); Color,Urine Yellow; Glucose,Urine (UA) Negative (Negative); Ketones,Urine Negative (Negative); Leukocyte Esterase,Urine Negative (Negative); Nitrite,Urine Negative (Negative); PH, Urine 5.5 (5.0-8.0); Protein,Urine Trace (Negative); Urobilinogen,Urine <2.0 mg/dL (<2.0)
[2023-05-22] MEDS: SPIRONOLACTONE 25 MG TAB PO SCH (17:04)
[2023-05-22 17:07] LABS: Specific Gravity,Urine 1.047 (1.001-1.035)
[2023-05-22] MEDS ORDERED: DEXTROSE 50% SYRINGE 50 ML IVP PRN ×2 (17:57)
--- NOTE | 2023-05-22 18:34 | P.HPIM ---
History of Present Illness H&P Date: 05/22/23 History of Presenting Illness: Patient is a pleasant 82-year-old male with a past medical history of CAD status post stenting, atrial fibrillation on anticoagulation with Eliquis, hypertension, hyperlipidemia, renal carcinoma status post right nephrectomy, nonalcoholic liver cirrhosis, and peripheral vascular disease. He presented to the emergency department with a chief complaint of generalized weakness and shortness of breath progressively worsening over the past 2 weeks accompanied by urinary retention. He reports that he follows with Dr. Araujo as his primary care doctor and sees Dr. Randle pre sales network engineer for management of his cirrhosis. Patient reports last seeing his pre sales network engineer about 3 months ago and reports last seeing Dr. Araujo being about 4 weeks ago[address] He reports Dr. Araujo took him off of Lasix and started him on Aldactone and he wasn't sure why. Patient reports he has had had swelling in his lower extremities for years now but does report it has worsened over the past month or so. He also reports over the past few weeks he has been getting very short of breath and having a hard time doing anything that he used to do a month ago because he can't catch his breath. He reports a nonproductive cough and occasional pains across the bottom of his lower rib cage. Pt reports in addition to this, he has been having difficulties with his urination. He reports now having inability to start a stream with worsening urinary retention. He denies noticing any fevers, chills, diaphoresis, palpitations or chest pains, or experiencing any focal numbness/tingling/weakness in his extremities reporting he just has overall generalized weakness because he can't breathe and he is so swollen he can't lift his legs. He reports shortness of breath is worsened with any movement or even simply with trying to have a conversation. Patient underwent full evaluation in the emergency department. Vital signs upon arrival showing heart rate 124, blood pressure 157/77, respiratory rate 20, temp 97.5F, and SpO2 of 99% on room air. EKG showing sinus tachycardia at 118 bpm with no significant T-wave or ST abnormalities upon personal review and interpretation. CT head completed in radiology report stating age related atrophic and chronic small vessel ischemic changes but negative for acute intracranial process. Chest x-ray reporting increased basilar density concerning for atelectasis and small effusions along with fluid within the right minor fissure versus linear atelectasis. Labs completed and reviewed. CBC showing macrocytic anemia with hemoglobin of 12.2 and thrombocytopenia with platelet count of 114. Coagulation profile showing PT 14.4, INR 1.4, and d- dimer of 5.07. BMP was unremarkable. Blood glucose 88. Lactic acid 2.3 with repeat lactate of 1.6. Liver profile showing transaminitis with hyperbilir ubinemia, bilirubin elevated at 2.7, AST 83, ALT 52, and alkaline phosphatase of 186. Troponin 0.020. ProBNP 3080. Urinalysis positive for protein and negative for blood or infection. Influenza A, influenza B, RSV, and Covid PCR were all negative. Patient was admitted under our services to cardiac stepdown unit with continuous telemetry at this time. Review of systems: Pertinent positives and negatives as discussed in HPI, a complete review of sys tems was performed and all other systems are negative. Physical exam: Vital signs reviewed and stable. General: Nontoxic, patient appears chronically ill Derm: Skin warm and dry, normal coloration for ethnicity. Head: Atraumatic, normocephalic and symmetric. Eyes: EOMs intact, no lid lag, mild scleral icteric Mouth: no lip lesions, mucus membranes moist Cardiovascular: Tachycardic rate with regular rhythm, soft systolic murmur. Anasarca present. Lungs: Respirations even, regular, and unlabored on room air however patient is noted to have significant conversational dyspnea. Lungs diminished, no wheezing/rhonchi/rales/crackles were noted. Abdominal: Distended cirrhotic abdomen. Nontender upon palpation. Hepatomegaly present Ext: No gross muscle atrophy or contractures. Patient with 3+ pitting bilateral lower extremity edema extending from bilateral feet extending upwards into groin, scrotum, and penile shaft and into abdomen. Neuro: Speech clear, face symmetrical and CN II-XII grossly intact with no noted focal neuro deficits. Patient is alert to person, place, time, and situation he did have a difficult time with some medications and previous medical history. Psych: Alert and oriented to person, place, time, and situation. Appropriate and pleasant affect. Assessment and Plan of Care: Fluid volume overload resulting from decompensated Nonalcoholic Liver cirrhosis Congestive heart failure, unclear type pending completion of echocardiogram Sinus tachycardia CAD status post stenting Paroxysmal atrial fibrillation Hypertension Hyperlipidemia Renal cell carcinoma status post right nephrectomy Peripheral vascular disease -Cardiology consulted, appreciate recommendations -Patient to remain on continuous Telemetry monitoring -Troponin 0.020 we will Trend troponins every 3 hours 2 -ProBNP 3080 -Order placed for strict monitoring of I's and O's and Daily weights -Cardiac diet -Continuation of daily medications including: Eliquis 5 mg twice daily, metoprolol 25 mg twice daily, and Aldactone 25 mg daily. Orders placed for Lasix 40 mg IVP every 8 hours. -Meld score 14 -Echocardiogram ordered Tineea Corporis -Patient with ringworm infection on abdomen, order placed for Lotrimin cream to be applied twice daily. Data and imaging reviewed: -Vital signs upon arrival showing heart rate 124, blood pressure 157/77, respiratory rate 20, temp 97.5F, and SpO2 of 99% on room air. -EKG showing sinus tachycardia at 118 bpm with no significant T-wave or ST abnormalities upon personal review and interpretation. -CT head completed in radiology report stating age related atrophic and chronic small vessel ischemic changes but negative for acute intracranial process. -Chest x-ray reporting increased basilar density concerning for atelectasis and small effusions along with fluid within the right minor fissure versus linear atelectasis. -Labs completed and reviewed. CBC showing macrocytic anemia with hemoglobin of 12.2 and thrombocytopenia with platelet count of 114. Coagulation profile showing PT 14.4, INR 1.4, and d-dimer of 5.07. BMP was unremarkable. Blood glucose 88. Lactic acid 2.3 with repeat lactate of 1.6. Liver profile showing transaminitis with hyperbilirubinemia, bilirubin elevated at 2.7, AST 83, ALT 52, and alkaline phosphatase of 186. Troponin 0.020. ProBNP 3080. -Urinalysis positive for protein and negative for blood or infection. -Influenza A, influenza B, RSV, and Covid PCR were all negative. The patient is admitted with an anticipated greater than 2 midnight stay for evaluation of acute heart failure with decompensated liver cirrhosis CODE STATUS: Full code DVT prophylaxis: Eliquis Anticipated discharge date: Clinical course to determine Anticipated discharge place: Clinical course to determine Patient was seen independently by Nurse Practitioner. This document was prepared using [employer] dictation software. Please allow for errors in signals collection technician while rare they do occur. Jin Mcgowan NP rendered care for this patient independently, reviewed the findings and plan as documented in the note above. I did not physically speak with or examine the patient on this date. Past Medical History Past Medical History: Asthma, Cancer, Chest Pain / Angina, GERD/Reflux, Hyperlipidemia, Hypertension, Osteoarthritis (OA), Skin Disorder, Thyroid Disorder Additional Past Medical History / Comment(s): poor circulation terri legs, hx hiatal hernia, gout, hx gastritis, fungal infection on toes, fatigue, hx rt kidney cancer, has a cane, swelling of terri ankles, liver cirohsis, History of Any Multi-Drug Resistant Organisms: None Reported Past Surgical History: Adenoidectomy, Heart Catheterization, Orthopedic Surgery, Tonsillectomy Additional Past Surgical History / Comment(s): right nephrectomy, rt knee arthroscopy Past Anesthesia/Blood Transfusion Reactions: Motion Sickness Past Psychological History: No Psychological Hx Reported Smoking Status: Former smoker Past Alcohol Use History: Occasional, Rare Past Drug Use History: None Reported - Past Family History Brother(s) Family Medical History: Cancer Father Family Medical History: Cancer Medications and Allergies Home Medications Medication Instructions Recorded Confirmed Type Albuterol Sulfate [Proventil Hfa] 2 puff INHALATION RT-Q4H PRN 05/22/23 05/22/23 History Apixaban [Eliquis] 5 mg PO BID 05/22/23 05/22/23 History Metoprolol Tartrate [Lopressor] 25 mg PO BID 05/22/23 05/22/23 History Spironolactone [Aldactone] 25 mg PO DAILY 05/22/23 05/22/23 History Allergies Allergy/AdvReac Type Severity Reaction Status Date / Time acetaminophen [From Kaiden] Allergy "pus in Verified 05/22/23 16:00 eyes" adhesive tape Allergy Rash/Hives Verified 05/22/23 16:00 chlorpheniramine Allergy "pus in Verified 05/22/23 16:00 [From Kaiden] eyes" cortisone Allergy Unknown Verified 05/22/23 16:00 gemfibrozil Allergy muscle pain Verified 05/22/23 16:00 oxymetazoline [From Kaiden] Allergy "pus in Verified 05/22/23 16:00 eyes" pheniramine [From Kaiden] Allergy "pus in Verified 05/22/23 16:00 eyes" phenylephrine [From Kaiden] Allergy "pus in Verified 05/22/23 16:00 eyes" pseudoephedrine Allergy "pus in Verified 05/22/23 16:00 [From Kaiden] eyes" Physical Exam Vitals: Vital Signs Temp Pulse Resp BP Pulse Ox 05/22/23 15:00 121 H 20 134/78 98 05/22/23 13:46 120 H 20 136/83 98 05/22/23 13:00 121 H 20 117/78 98 05/22/23 12:00 122 H 14 131/87 96 05/22/23 11:30 122 H 13 131/87 98 05/22/23 11:08 24 05/22/23 09:02 97.5 F L 124 H 20 157/77 99 Intake and Output 05/22/23 05/22/23 05/22/23 06:59 14:59 22:59 Other: Weight 83.915 kg Results CBC & Chem 7: 05/25/23 06:42 05/25/23 06:42 Labs: Abnormal Lab Results - Last 24 Hours (Table) 05/22/23 05/22/23 05/22/23 Range/Units 10:15 10:15 10:15 RBC 3.62 L (4.30-5.90) m/uL Hgb 12.2 L (13.0-17.5) gm/dL Hct 37.0 L (39.0-53.0) % MCV 102.0 H (80.0-100.0) fL Plt Count 114 L (150-450) k/uL Lymphocytes # 0.7 L (1.0-4.8) k/uL PT 14.4 H (10.0-12.5) sec INR 1.4 H (<1.2) D-Dimer (<0.60) mg/L FEU Plasma Lactic Acid Gavin (0.7-2.0) mmol/L Total Bilirubin 2.7 H (0.2-1.3) mg/dL AST 83 H (17-59) U/L ALT 52 H (4-49) U/L Alkaline Phosphatase 186 H (38-126) U/L Albumin 3.3 L (3.5-5.0) g/dL 05/22/23 05/22/23 Range/Units 10:15 10:15 RBC (4.30-5.90) m/uL Hgb (13.0-17.5) gm/dL Hct (39.0-53.0) % MCV (80.0-100.0) fL Plt Count (150-450) k/uL Lymphocytes # (1.0-4.8) k/uL PT (10.0-12.5) sec INR (<1.2) D-Dimer 5.07 H (<0.60) mg/L FEU Plasma Lactic Acid Gavin 2.3 H* (0.7-2.0) mmol/L Total Bilirubin (0.2-1.3) mg/dL AST (17-59) U/L ALT (4-49) U/L Alkaline Phosphatase (38-126) U/L Albumin (3.5-5.0) g/dL
[2023-05-22 18:43] LABS: Glucose,Whole Blood 95 mg/dL (70-110)
[2023-05-22] MEDS: CLOTRIMAZOLE 1% CREAM 30 GM TUBE TOPICAL SCH (22:19)
[2023-05-22] MEDS: APIXABAN 5 MG TAB PO SCH (22:33)
[2023-05-22] MEDS: METOPROLOL TARTRATE 25 MG TAB PO SCH (22:33)
[2023-05-23] MEDS: FUROSEMIDE 10 MG/ML 4 ML VIAL IV SCH ×4 (00:31→23:07)
[2023-05-23] MEDS: APIXABAN 5 MG TAB PO SCH ×2 (07:53→20:01)
[2023-05-23] MEDS: METOPROLOL TARTRATE 25 MG TAB PO SCH ×2 (07:53→20:01)
[2023-05-23] MEDS: SPIRONOLACTONE 25 MG TAB PO SCH (07:53)
[2023-05-23] MEDS: CLOTRIMAZOLE 1% CREAM 30 GM TUBE TOPICAL SCH ×2 (09:25→23:07)
--- NOTE | 2023-05-23 11:24 | P.CRDCN ---
History of Present Illness Consult date: 05/23/23 Chief complaint: Shortness of breath History of present illness: The patient is an 82-year-old gentleman with known coronary artery disease docum ented on heart catheterization in 2017 as well as hypertension and dyslipidemia the patient also is on oral anticoagulation for unknown reason he does not recall being diagnosed with atrial fibrillation or any history of DVT or PE, presented to the hospital complaining of shortness of breath. He describes progressive exertional dyspnea and progressive bilateral lower extremity edema. He stated that he was receiving oral diuretics and that has been stopped recently. He stated that he was diagnosed with heart failure before. He stated that he was compliant with his medications and compliant was low sodium diet. He is not quite sure gain any weight. He reports no pain in the chest and no dizziness or lightheadedness and no feeling of heart racing or fluttering and no presyncope or syncope. Other workup was performed including the proBNP came to be needed and chest x-ray showed findings consistent with heart failure. D- dimer was abnormal but CT of the chest did not show any acute abnormalities. The rest of the blood work came in to be unremarkable. The EKG showed sinus mechanism with low-voltage QRS and sinus tachycardia. Echo was ordered and still pending. The patient currently is on Lasix. 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 It was done will follow-up with that Follow-up with the patient Past Medical History Past Medical History: Asthma, Cancer, Chest Pain / Angina, GERD/Reflux, Hyperlipidemia, Hypertension, Osteoarthritis (OA), Skin Disorder, Thyroid Disorder Additional Past Medical History / Comment(s): poor circulation terri legs, hx hiatal hernia, gout, hx gastritis, fungal infection on toes, fatigue, hx rt kidney cancer - nephrectomy, has a cane, swelling of terri ankles, liver cirohsis, History of Any Multi-Drug Resistant Organisms: None Reported Past Surgical History: Adenoidectomy, Heart Catheterization, Orthopedic Surgery, Tonsillectomy Additional Past Surgical History / Comment(s): right nephrectomy, rt knee arthroscopy Past Anesthesia/Blood Transfusion Reactions: Motion Sickness Past Psychological History: No Psychological Hx Reported Smoking Status: Former smoker Past Alcohol Use History: Occasional, Rare Past Drug Use History: None Reported - Past Family History Brother(s) Family Medical History: Cancer Father Family Medical History: Cancer Medications and Allergies Home Medications Medication Instructions Recorded Confirmed Type Albuterol Sulfate [Proventil Hfa] 2 puff INHALATION RT-Q4H PRN 05/22/23 05/22/23 History Apixaban [Eliquis] 5 mg PO BID 05/22/23 05/22/23 History Metoprolol Tartrate [Lopressor] 25 mg PO BID 05/22/23 05/22/23 History Spironolactone [Aldactone] 25 mg PO DAILY 05/22/23 05/22/23 History Allergies Allergy/AdvReac Type Severity Reaction Status Date / Time acetaminophen [From Kaiden] Allergy "pus in Verified 05/22/23 16:00 eyes" adhesive tape Allergy Rash/Hives Verified 05/22/23 16:00 chlorpheniramine Allergy "pus in Verified 05/22/23 16:00 [From Kaiden] eyes" cortisone Allergy Unknown Verified 05/22/23 16:00 gemfibrozil Allergy muscle pain Verified 05/22/23 16:00 oxymetazoline [From Kaiden] Allergy "pus in Verified 05/22/23 16:00 eyes" pheniramine [From Kaiden] Allergy "pus in Verified 05/22/23 16:00 eyes" phenylephrine [From Kaiden] Allergy "pus in Verified 05/22/23 16:00 eyes" pseudoephedrine Allergy "pus in Verified 05/22/23 16:00 [From Kaiden] eyes" Physical Exam Vitals: Vital Signs Temp Pulse Pulse Resp BP BP Pulse Ox 05/23/23 09:10 106/60 05/23/23 07:40 97.6 F 73 16 102/54 100 05/23/23 04:00 78 16 91/70 98 05/23/23 01:40 77 20 05/23/23 00:00 77 20 94/70 95 05/22/23 20:00 98.2 F 115 H 22 124/82 97 05/22/23 19:00 85 18 119/102 98 05/22/23 18:00 98 17 99/72 98 05/22/23 16:00 121 H 20 132/99 98 05/22/23 15:00 121 H 20 134/78 98 05/22/23 13:46 120 H 20 136/83 98 05/22/23 13:00 121 H 20 117/78 98 05/22/23 12:00 122 H 14 131/87 96 05/22/23 11:30 122 H 13 131/87 98 Intake and Output 05/22/23 05/23/23 05/23/23 22:59 06:59 14:59 Intake Total 400 Output Total 500 1000 450 Balance -500 -600 -450 Intake: Oral 400 Output: Urine 500 1000 450 Other: Voiding Method Indwelling Catheter Indwelling Catheter Indwelling Catheter Weight 83.915 kg Results 05/22/23 10:15 05/22/23 10:15 Cardiac Enzymes 05/22/23 05/22/23 05/22/23 Range/Units 18:13 20:49 23:38 Troponin I 0.026 0.025 0.022 (0.000-0.034) ng/mL Current Medications Generic Name Dose Route Start Last Admin Trade Name Freq PRN Reason Stop Dose Admin Albuterol Sulfate 2.5 mg 05/22/23 16:03 Albuterol Nebulized 2.5 Mg/3 Ml INHALATION RT-Q4H PRN Shortness Of Breath Apixaban 5 mg 05/22/23 21:00 05/23/23 07:53 Apixaban 5 Mg Tab PO 5 mg BID JULISSA Administration Protocol Clotrimazole 1 applic 05/22/23 21:00 05/23/23 09:25 Clotrimazole 1% Cream 30 Gm Tube TOPICAL Not Given BID JULISSA Protocol Dextrose/Water 25 ml 05/22/23 17:57 Dextrose 50% Syringe 50 Ml IVP PER PROTOCOL PRN Hypoglycemia Protocol Dextrose/Water 50 ml 05/22/23 17:57 Dextrose 50% Syringe 50 Ml IVP PER PROTOCOL PRN Hypoglycemia Protocol Furosemide 40 mg 05/23/23 00:00 05/23/23 08:48 Furosemide 10 Mg/Ml 4 Ml Vial IV 40 mg Q8HR JULISSA Administration Metoprolol Tartrate 25 mg 05/22/23 21:00 05/23/23 07:53 Metoprolol Tartrate 25 Mg Tab PO 25 mg BID JULISSA Administration Naloxone HCl 0.2 mg 05/22/23 15:42 Naloxone 0.4 Mg/Ml 1 Ml Vial IV Q2M PRN Opioid Reversal Ondansetron HCl 4 mg 05/22/23 15:42 Ondansetron 4 Mg/2 Ml Vial IVP Q8HR PRN Nausea And Vomiting Spironolactone 25 mg 05/22/23 16:15 05/23/23 07:53 Spironolactone 25 Mg Tab PO 25 mg DAILY JULISSA Administration Intake and Output 05/22/23 05/23/23 05/23/23 22:59 06:59 14:59 Intake Total 400 Output Total 500 1000 450 Balance -500 -600 -450 Intake: Oral 400 Output: Urine 500 1000 450 Other: Voiding Method Indwelling Catheter Indwelling Catheter Indwelling Catheter Weight 83.915 kg 05/22/23 10:15 05/22/23 10:15
--- NOTE | 2023-05-23 14:44 | P.CNPUL ---
History of Present Illness Consult date: 05/23/23 Requesting physician: Pau Ascencio Reason for consult: dyspnea Chief complaint: Lower extremity edema, shortness of breath, weakness History of present illness: This is a pleasant 82-year-old male patient with a known history of coronary artery disease with previous stent placement, and clearly with all her chest for atrial fibrillation, hypertension, hyperlipidemia, renal cell carcinoma status post nephrectomy, nonalcoholic liver cirrhosis and peripheral vascular disease. He follows with Dr. Irma Chavez for his cirrhosis. He is a primary patient of Dr. Oconnor. He presented to the emergency room yesterday with complaints of increasing lower extremity edema and worsening shortness of breath. He had recently been taken off Lasix and started on Aldactone. ET scan of the chest revealed no definitive pulmonary embolus. Findings compatible with congestive heart failure mild interstitial edema with small to moderate right and small left pleural effusions. Marketed generalized anasarca. White count 5.7. Hemoglobin 12.2. Platelets 114. INR 1.4. D-dimer 5.07. Sodium 141. Pot assium 4.2. Bicarb 26. BUN 17. Creatinine 0.76. Glucose 88. AST 83. ALT 52. Alk phos 186. ProBNP 3080. Viral screen negative. He is seen today in consultation in the emergency department. He is currently resting fairly comfortably in bed. Awake and alert in no acute distress. Maintaining good O2 saturations in the upper 90s on room air. He's afebrile. Hemodynamically stable. He is having some abdominal discomfort secondary to the ascites. He's been initiated on Lasix 40 mg IV every 8 hours. Currently in a -1.1 L balance. Review of Systems REVIEW OF SYSTEMS: CONSTITUTIONAL: Denies any recent significant weight loss or weight gain. EYES: Denies change in vision. EARS, NOSE, MOUTH, THROAT: Denies headaches, denies sore throat. CARDIOVASCULAR: Denies chest pain, palpitations or syncopal episodes. RESPIRATORY: Positive for shortness of breath, no cough, congestion or hemoptysis. GASTROINTESTINAL: Positive for abdominal pain GENITOURINARY: Denies hematuria, denies infections. MUSKULOSKELETAL: Positive for increased swelling. INTEGUMENTARY: Denies rash, denies eczema. NEUROLOGICAL: Denies recent memory loss, no recent seizure activity. PSYCHIATRIC: Denies anxiety, denies depression. HEMATOLOGIC/LYMPHATIC: Denies anemia, denies enlarged lymph nodes. Past Medical History Past Medical History: Asthma, Cancer, Chest Pain / Angina, GERD/Reflux, Hyperlipidemia, Hypertension, Osteoarthritis (OA), Skin Disorder, Thyroid Disorder Additional Past Medical History / Comment(s): poor circulation terri legs, hx hiatal hernia, gout, hx gastritis, fungal infection on toes, fatigue, hx rt kidney cancer - nephrectomy, has a cane, swelling of terri ankles, liver cirohsis, History of Any Multi-Drug Resistant Organisms: None Reported Past Surgical History: Adenoidectomy, Heart Catheterization, Orthopedic Surgery, Tonsillectomy Additional Past Surgical History / Comment(s): right nephrectomy, rt knee arthroscopy Past Anesthesia/Blood Transfusion Reactions: Motion Sickness Past Psychological History: No Psychological Hx Reported Smoking Status: Former smoker Past Alcohol Use History: Occasional, Rare Past Drug Use History: None Reported - Past Family History Brother(s) Family Medical History: Cancer Father Family Medical History: Cancer Medications and Allergies Home Medications Medication Instructions Recorded Confirmed Type Albuterol Sulfate [Proventil Hfa] 2 puff INHALATION RT-Q4H PRN 05/22/23 05/22/23 History Apixaban [Eliquis] 5 mg PO BID 05/22/23 05/22/23 History Metoprolol Tartrate [Lopressor] 25 mg PO BID 05/22/23 05/22/23 History Spironolactone [Aldactone] 25 mg PO DAILY 05/22/23 05/22/23 History Allergies Allergy/AdvReac Type Severity Reaction Status Date / Time acetaminophen [From Kaiden] Allergy "pus in Verified 05/22/23 16:00 eyes" adhesive tape Allergy Rash/Hives Verified 05/22/23 16:00 chlorpheniramine Allergy "pus in Verified 05/22/23 16:00 [From Kaiden] eyes" cortisone Allergy Unknown Verified 05/22/23 16:00 gemfibrozil Allergy muscle pain Verified 05/22/23 16:00 oxymetazoline [From Kaiden] Allergy "pus in Verified 05/22/23 16:00 eyes" pheniramine [From Kaiden] Allergy "pus in Verified 05/22/23 16:00 eyes" phenylephrine [From Kaiden] Allergy "pus in Verified 05/22/23 16:00 eyes" pseudoephedrine Allergy "pus in Verified 05/22/23 16:00 [From Kaiden] eyes" Physical Exam Vitals: Vital Signs Temp Pulse Pulse Resp BP BP Pulse Ox 05/23/23 12:07 97.6 F 85 18 105/84 96 05/23/23 09:10 106/60 05/23/23 07:40 97.6 F 73 16 102/54 100 05/23/23 04:00 78 16 91/70 98 05/23/23 01:40 77 20 05/23/23 00:00 77 20 94/70 95 05/22/23 20:00 98.2 F 115 H 22 124/82 97 05/22/23 19:00 85 18 119/102 98 05/22/23 18:00 98 17 99/72 98 05/22/23 16:00 121 H 20 132/99 98 05/22/23 15:00 121 H 20 134/78 98 Intake and Output 05/22/23 05/23/23 05/23/23 22:59 06:59 14:59 Intake Total 400 Output Total 500 1000 1450 Balance -500 -600 -1450 Intake: Oral 400 Output: Urine 500 1000 1450 Other: Voiding Method Indwelling Catheter Indwelling Catheter Indwelling Catheter Weight 83.915 kg GENERAL EXAM: Alert, pleasant 82-year-old male, on room air, fairly comfortable in no apparent distress. HEAD: Normocephalic. EYES: Normal reaction of pupils, equal size. NOSE: Clear with pink turbinates. THROAT: No erythema or exudates. NECK: No masses, no JVD. CHEST: No chest wall deformity. LUNGS: Equal air entry with no crackles, wheeze, rhonchi or dullness. CVS: S1 and S2 normal with no audible murmur, regular rhythm. ABDOMEN: Distended, fluid wave present, normal bowel sounds, no guarding or rigidity. SPINE: No scoliosis or deformity SKIN: No rashes CENTRAL NERVOUS SYSTEM: No focal deficits, tone is normal in all 4 extremities. EXTREMITIES: There is 2+ peripheral edema. No clubbing, no cyanosis. Peripheral pulses are intact. Results - Laboratory Findings CBC and BMP: 05/22/23 10:15 05/22/23 10:15 PT/INR, D-dimer PT 14.4 sec (10.0-12.5) H 05/22/23 10:15 INR 1.4 (<1.2) H 05/22/23 10:15 D-Dimer 5.07 mg/L FEU (<0.60) H 05/22/23 10:15 Abnormal lab findings: Abnormal Labs 05/22/23 05/22/23 05/22/23 10:15 10:15 10:15 RBC 3.62 L Hgb 12.2 L Hct 37.0 L MCV 102.0 H Plt Count 114 L Lymphocytes # 0.7 L PT 14.4 H INR 1.4 H D-Dimer Plasma Lactic Acid Gavin Total Bilirubin AST ALT Alkaline Phosphatase Albumin Ur Specific [place] 1.047 H Urine Protein Trace H 05/22/23 05/22/23 05/22/23 10:15 10:15 10:15 RBC Hgb Hct MCV Plt Count Lymphocytes # PT INR D-Dimer 5.07 H Plasma Lactic Acid Gavin 2.3 H* Total Bilirubin 2.7 H AST 83 H ALT 52 H Alkaline Phosphatase 186 H Albumin 3.3 L Ur Specific [place] Urine Protein - Diagnostic Findings Chest x-ray: image reviewed CT scan - chest: image reviewed Assessment and Plan Assessment: Generalized weakness and fatigue secondary to fluid volume overload secondary to nonalcoholic liver cirrhosis Acute suspected systolic versus diastolic congestive heart failure History of renal cell carcinoma status post nephrectomy, right Coronary disease status post stent placement Paroxysmal atrial fibrillation anticoagulated with liquids Hypertension Hyperlipidemia Peripheral vascular disease Plan: The patient was seen and evaluated Chest x-ray, CAT scan, labs and medications reviewed Currently stable and on room air Continue IV diuretics, Aldactone Echocardiogram pending Continued on Eliquis We'll plan for consult with GI once available We will continue to follow and make further recommendations based on his clinical status I have personally seen and examined the patient, performed the documentation and the assessment and plan as written. Number of minutes spent on the visit: 20.
--- NOTE | 2023-05-23 15:54 | CA ---
Transthoracic Echo Report Name: Omari Paz Age: 82 Gender: M : 1940 Exam Date: 05/23/2023 09:19 Exam Location: [facility] Ht (in): 68 Wt (lb): 185 Ordering Physician: Jin Mcgowan Attending/Referring Phys: [employer] Jana Russell RDCS Procedure CPT: Indications: Evaluate structure and function of heart Cardiac Hx: Technical Quality: Fair Contrast 1: Total Dose (mL): Contrast 2: Total Dose (mL): MEASUREMENTS (Male / Female) Normal Values 2D ECHO LV Diastolic Diameter PLAX 5.5 cm 4.2 - 5.9 / 3.9 - 5.3 cm LV Systolic Diameter PLAX 4.2 cm IVS Diastolic Thickness 1.2 cm 0.6 - 1.0 / 0.6 - 0.9 cm LVPW Diastolic Thickness 1.3 cm 0.6 - 1.0 / 0.6 - 0.9 cm LV Relative Wall Thickness 0.5 RV Internal Dim ED PLAX 3.5 cm LVOT Diameter 2.4 cm LA Systolic Diameter LX 4.2 cm 3.0 - 4.0 / 2.7 - 3.8 cm LV Diastolic Volume MOD 4C 110.5 cm??? LV Systolic Volume MOD 4C 74.2 cm??? LV Ejection Fraction MOD 4C 32.8 % LV Cardiac Index MOD 4C 1378.1 cm???/min???m??? LV Diastolic Length 4C 8.4 cm LV Systolic Length 4C 7.3 cm LV Diastolic Volume MOD 2C 88.6 cm??? LV Systolic Volume MOD 2C 53.3 cm??? LV Ejection Fraction MOD 2C 39.9 % LV Cardiac Index MOD 2C 1342.1 cm???/min???m??? LV Diastolic Length 2C 7.9 cm LV Systolic Length 2C 7.0 cm LA Volume 95.3 cm??? 18 - 58 / 22 - 52 cm??? LA Volume Index 47.1 cm???/m??? 16 - 28 cm???/m??? M-MODE Aortic Root Diameter MM 4.2 cm AV Cusp Separation MM 1.6 cm DOPPLER AV Peak Velocity 186.5 cm/s AV Peak Gradient 13.9 mmHg AV Mean Velocity 135.3 cm/s AV Mean Gradient 8.0 mmHg AV Velocity Time Integral 44.3 cm LVOT Peak Velocity 85.6 cm/s LVOT Peak Gradient 2.9 mmHg AV Area Cont Eq pk 2.1 cm??? MV Area PHT 4.5 cm??? MV Deceleration Time 214.8 ms TR Peak Velocity 253.9 cm/s TR Peak Gradient 25.8 mmHg Right Ventricular Systolic Press 30.8 mmHg FINDINGS Left Ventricle Left ventricular ejection fraction is estimated at 50-55 %. Left ventricular cavity size normal. Mildly increased septal wall thickness. Right Ventricle Mild right ventricular dilatation. Right ventricular systolic pressure within normal limits. Right Atrium Normal right atrial size. Left Atrium Mildly increased left atrial diameter. Severely increased left atrial volume. Mildly increased left atrial area. Mitral Valve Mitral valve thickened. Mild mitral annular calcification. Mild to moderate mitral regurgitation. Aortic Valve Trileaflet aortic valve. Aortic valve sclerosis. No aortic valve stenosis or regurgitation. Tricuspid Valve Structurally normal tricuspid valve. Mild tricuspid regurgitation. Pulmonic Valve Structurally normal pulmonic valve. Trace pulmonic regurgitation. Pericardium No pericardial effusion. Aorta Moderate aortic dilatation at the level of the sinuses of valsalva 42 mm CONCLUSIONS Normal LV systolic function [id number] mitral regurgitation Previewed by: Dr. Justen Ricardo MD (Electronically Signed) Final Date: 23 May 2023 15:53
--- NOTE | 2023-05-23 16:23 | P.PN ---
Subjective Progress Note Date: 05/23/23 History of Presenting Illness: Patient is a pleasant 82-year-old male with a past medical history of CAD status post stenting, atrial fibrillation on anticoagulation with Eliquis, hypertension, hyperlipidemia, renal carcinoma status post right nephrectomy, nonalcoholic liver cirrhosis, and peripheral vascular disease. He presented to the emergency department with a chief complaint of generalized weakness and shortness of breath progressively worsening over the past 2 weeks accompanied by urinary retention. He reports that he follows with Dr. Araujo as his primary care doctor and sees Dr. Randle tie cutter for management of his cirrhosis. Patient reports last seeing his tie cutter about 3 months ago and reports last seeing Dr. Araujo being about 4 weeks ago[address] He reports Dr. Araujo took him off of Lasix and started him on Aldactone and he wasn't sure why. Patient reports he has had had swelling in his lower extremities for years now but does report it has worsened over the past month or so. He also reports over the past few weeks he has been getting very short of breath and having a hard time doing anything that he used to do a month ago because he can't catch his breath. He reports a nonproductive cough and occasional pains across the bottom of his lower rib cage. Pt reports in addition to this, he has been having difficulties with his urination. He reports now having inability to start a stream with worsening urinary retention. He denies noticing any fevers, chills, diaphoresis, palpitations or chest pains, or experiencing any focal numbness/tingling/weakness in his extremities reporting he just has overall generalized weakness because he can't breathe and he is so swollen he can't lift his legs. He reports shortness of breath is worsened with any movement or even simply with trying to have a conversation. Patient underwent full evaluation in the emergency department. Vital signs upon arrival showing heart rate 124, blood pressure 157/77, respiratory rate 20, temp 97.5F, and SpO2 of 99% on room air. EKG showing sinus tachycardia at 118 bpm with no significant T-wave or ST abnormalities upon personal review and interpretation. CT head completed in radiology report stating age related atrophic and chronic small vessel ischemic changes but negative for acute intracranial process. Chest x-ray reporting increased basilar density concerning for atelectasis and small effusions along with fluid within the right minor fissure versus linear atelectasis. Labs completed and reviewed. CBC showing macrocytic anemia with hemoglobin of 12.2 and thrombocytopenia with platelet count of 114. Coagulation profile showing PT 14.4, INR 1.4, and d- dimer of 5.07. BMP was unremarkable. Blood glucose 88. Lactic acid 2.3 with repeat lactate of 1.6. Liver profile showing transaminitis with hyperbilirubinemia, bilirubin elevated at 2.7, AST 83, ALT 52, and alkaline phosphatase of 186. Troponin 0.020. ProBNP 3080. Urinalysis positive for protein and negative for blood or infection. Influenza A, influenza B, RSV, and Covid PCR were all negative. Patient was admitted under our services to cardiac stepdown unit with continuous telemetry monitoring. Physical exam: Vital signs reviewed and stable. General: Nontoxic, patient appears chronically ill Derm: Skin warm and dry, normal coloration for ethnicity. Head: Atraumatic, normocephalic and symmetric. Eyes: EOMs intact, no lid lag, mild scleral icteric Mouth: no lip lesions, mucus membranes moist Cardiovascular: Regular rate with regular rhythm, soft systolic murmur. Anasarca present. Lungs: Respirations even, regular, and unlabored on room air. Lungs diminished, no wheezing/rhonchi/rales/crackles were noted. Abdominal: Distended cirrhotic abdomen. Nontender upon palpation. Hepatomegaly present Ext: No gross muscle atrophy or contractures. Patient with 2-3+ pitting bilateral lower extremity edema extending from bilateral feet extending upwards into groin, scrotum, and penile shaft and into abdomen. Neuro: Speech clear, face symmetrical and CN II-XII grossly intact with no noted focal neuro deficits. Patient is alert to person, place, time, and situation he did have a difficult time with some medications and previous medical history. Psych: Alert and oriented to person, place, time, and situation. Appropriate and pleasant affect. Assessment and Plan of Care: Fluid volume overload resulting from Decompensated Nonalcoholic Liver cirrhosis HFpEF Sinus tachycardia, resolved CAD status post stenting Paroxysmal atrial fibrillation Hypertension Hyperlipidemia Renal cell carcinoma status post right nephrectomy Peripheral vascular disease Transaminitis secondary to cirrhosis -Cardiology following, reviewed documentation in chart -Patient to remain on continuous Telemetry monitoring -Troponins trended resulting at 0.020, 0.026, 0.025, and 0.022. -ProBNP 3080 -Continue strict monitoring of I's and O's and Daily weights -Continue Lasix 40 mg IVP every 8 hours, patient had a documented output of 1500 mL over the past 24 hours -Patient to continue daily medication regimen with Eliquis 5 mg twice daily, metoprolol 25 mg twice daily, and Aldactone 25 mg daily. -Meld score 14 -Echocardiogram revealed EF of 50-55% and mild to moderate mitral regurgitation Tineea Corporis -Patient with ringworm infection on abdomen, order placed for Lotrimin cream to be applied twice daily. Data and imaging reviewed: -Vital signs reviewed. Blood pressure 102/54, heart rate 73, respiratory rate 16, temperature 97.6 treatments Fahrenheit, SpO2 100% on room air. -Echocardiogram revealed EF of 50-55% and mild to moderate mitral regurgitation CODE STATUS: Full code DVT prophylaxis: Eliquis Anticipated discharge date: Clinical course to determine Anticipated discharge place: Clinical course to determine Patient was seen independently by Nurse Practitioner. This document was prepared using [employer] dictation software. Please allow for errors in senior instrumentation engineer while rare they do occur. Jin Mcgowan NP rendered care for this patient independently, reviewed the findings and plan as documented in the note above. I did not physically speak with or examine the patient on this date. Objective - Vital Signs Vital signs: Vital Signs Temp 97.6 F 05/23/23 07:40 Pulse 73 05/23/23 07:40 Resp 16 05/23/23 07:40 BP 102/54 05/23/23 07:40 Pulse Ox 100 05/23/23 07:40 FiO2 Intake & Output 05/22/23 05/23/23 05/23/23 18:59 06:59 18:59 Intake Total 400 Output Total 1500 Balance -1100 Weight 83.915 kg 83.915 kg Intake: Oral 400 Output: Urine 1500 Other: Voiding Method Indwelling Catheter - Labs CBC & Chem 7: 05/25/23 06:42 05/25/23 06:42 Labs: Abnormal Lab Results - Last 24 Hours (Table) 05/22/23 05/22/23 05/22/23 Range/Units 10:15 10:15 10:15 RBC 3.62 L (4.30-5.90) m/uL Hgb 12.2 L (13.0-17.5) gm/dL Hct 37.0 L (39.0-53.0) % MCV 102.0 H (80.0-100.0) fL Plt Count 114 L (150-450) k/uL Lymphocytes # 0.7 L (1.0-4.8) k/uL PT 14.4 H (10.0-12.5) sec INR 1.4 H (<1.2) D-Dimer (<0.60) mg/L FEU Plasma Lactic Acid Gavin (0.7-2.0) mmol/L Total Bilirubin (0.2-1.3) mg/dL AST (17-59) U/L ALT (4-49) U/L Alkaline Phosphatase (38-126) U/L Albumin (3.5-5.0) g/dL Ur Specific [place] 1.047 H (1.001-1.035) Urine Protein Trace H (Negative) 05/22/23 05/22/23 05/22/23 Range/Units 10:15 10:15 10:15 RBC (4.30-5.90) m/uL Hgb (13.0-17.5) gm/dL Hct (39.0-53.0) % MCV (80.0-100.0) fL Plt Count (150-450) k/uL Lymphocytes # (1.0-4.8) k/uL PT (10.0-12.5) sec INR (<1.2) D-Dimer 5.07 H (<0.60) mg/L FEU Plasma Lactic Acid Gavin 2.3 H* (0.7-2.0) mmol/L Total Bilirubin 2.7 H (0.2-1.3) mg/dL AST 83 H (17-59) U/L ALT 52 H (4-49) U/L Alkaline Phosphatase 186 H (38-126) U/L Albumin 3.3 L (3.5-5.0) g/dL Ur Specific [place] (1.001-1.035) Urine Protein (Negative)
[2023-05-23 20:01] LABS: Glucose,Whole Blood 133 mg/dL (70-110)
[2023-05-24 05:59] LABS: Glucose,Whole Blood 128 mg/dL (70-110)
[2023-05-24] MEDS: FUROSEMIDE 10 MG/ML 4 ML VIAL IV SCH (08:30)
[2023-05-24] MEDS: SPIRONOLACTONE 25 MG TAB PO SCH (08:31)
[2023-05-24] MEDS: METOPROLOL TARTRATE 25 MG TAB PO SCH ×2 (08:31→21:29)
[2023-05-24] MEDS: CLOTRIMAZOLE 1% CREAM 30 GM TUBE TOPICAL SCH ×2 (08:31→21:29)
[2023-05-24] MEDS: APIXABAN 5 MG TAB PO SCH ×2 (08:31→21:29)
[2023-05-24 09:39] LABS: HCT 31.4 % (39.0-53.0); HGB 10.4 gm/dL (13.0-17.5); MCH 33.5 pg (25.0-35.0); MCHC 33.3 g/dL (31.0-37.0); MCV 100.7 fL (80.0-100.0); Macrocytosis Slight; Mean Platelet Volume 8.5; RBC 3.12 m/uL (4.30-5.90); RDW 14.6 % (11.5-15.5); WBC 4.6 k/uL (3.8-10.6)
[2023-05-24 09:53] LABS: ALT 40 U/L (4-49); AST 61 U/L (17-59); African American GFR (CKD) 72 (>60 ml/min/1.73 sqM); Albumin 2.6 g/dL (3.5-5.0); Alkaline Phosphatase 105 U/L (38-126); Anion Gap 8 mmol/L; Blood Urea Nitrogen 23 mg/dL (9-20); Calcium 8.3 mg/dL (8.4-10.2); Carbon Dioxide 28 mmol/L (22-30); Chloride 101 mmol/L (98-107); Glucose 114 mg/dL (74-99); Magnesium 1.8 mg/dL (1.6-2.3); Non-African American GFR(CKD) 62 (>60 ml/min/1.73 sqM); Potassium 3.8 mmol/L (3.5-5.1); Sodium 137 mmol/L (137-145); Total Bilirubin 2.2 mg/dL (0.2-1.3); Total Protein 5.7 g/dL (6.3-8.2)
[2023-05-24 10:09] LABS: Platelet Count 98 k/uL (150-450)
--- NOTE | 2023-05-24 10:35 | P.PN ---
Subjective Progress Note Date: 05/24/23 Principal diagnosis: CHF The patient is an 82-year-old gentleman with known coronary artery disease documented on heart catheterization in 2017 as well as hypertension and dyslipi demia the patient also is on oral anticoagulation for unknown reason he does not recall being diagnosed with atrial fibrillation or any history of DVT or PE, presented to the hospital complaining of shortness of breath. He describes progressive exertional dyspnea and progressive bilateral lower extremity edema. He stated that he was receiving oral diuretics and that has been stopped recently. He stated that he was diagnosed with heart failure before. He stated that he was compliant with his medications and compliant was low sodium diet. He is not quite sure gain any weight. He reports no pain in the chest and no dizziness or lightheadedness and no feeling of heart racing or fluttering and no presyncope or syncope. Other workup was performed including the proBNP came to be needed and chest x-ray showed findings consistent with heart failure. D- dimer was abnormal but CT of the chest did not show any acute abnormalities. The rest of the blood work came in to be unremarkable. The EKG showed sinus mechanism with low-voltage QRS and sinus tachycardia. Echo was ordered and still pending. The patient currently is on Lasix. Examination is remarkable for severe bilateral lower extremity is pitting edema and chronic skin changes and redness in the legs and also bilateral rhonchi and also a systolic murmur at the right and left upper sternal border 05/24/2023 The patient was seen and evaluated this morning. He stated that he is feeling better. He still have bilateral lower extremity edema and when he presented he was having right more than left heart failure. The shortness of breath is improved as well. No pain in the chest. Kidney function remains stable. Pressure is marginal. I'm going to decrease the dose of Lasix just because of the low blood pressure and also decrease the dose of Aldactone. Continue monitor the kidney function and electrolytes and monitor the patient for additional 24 hours. The examination is remarkable for at least moderate bilateral lower extremity is pitting edema. 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 Sinus tachycardia Hypertension Dyslipidemia Coronary artery disease The patient is on anticoagulation for unknown reason Plan Decrease the dose of Lasix Decrease the dose of Aldactone Continue monitoring the kidney function and electrolytes Follow-up with the patient Objective - Vital Signs Vital signs: Vital Signs Temp 98.4 F 05/24/23 08:00 Pulse 71 05/24/23 08:00 Resp 16 05/24/23 08:00 BP 97/53 05/24/23 08:00 Pulse Ox 94 L 05/24/23 08:00 FiO2 Intake & Output 05/23/23 05/24/23 05/24/23 18:59 06:59 18:59 Intake Total 118 Output Total 1450 1100 Balance -1450 -1100 118 Intake: Oral 118 Output: Urine 1450 1100 Other: Voiding Method Indwelling Catheter Indwelling Catheter - Labs CBC & Chem 7: 05/24/23 08:49 05/24/23 08:49 Labs: Abnormal Lab Results - Last 24 Hours (Table) 05/23/23 05/24/23 05/24/23 Range/Units 20:00 05:55 08:49 RBC 3.12 L (4.30-5.90) m/uL Hgb 10.4 L (13.0-17.5) gm/dL Hct 31.4 L (39.0-53.0) % MCV 100.7 H (80.0-100.0) fL Plt Count 98 L (150-450) k/uL BUN (9-20) mg/dL Glucose (74-99) mg/dL POC Glucose (mg/dL) 133 H 128 H (70-110) mg/dL Calcium (8.4-10.2) mg/dL Total Bilirubin (0.2-1.3) mg/dL AST (17-59) U/L Total Protein (6.3-8.2) g/dL Albumin (3.5-5.0) g/dL 05/24/23 Range/Units 08:49 RBC (4.30-5.90) m/uL Hgb (13.0-17.5) gm/dL Hct (39.0-53.0) % MCV (80.0-100.0) fL Plt Count (150-450) k/uL BUN 23 H (9-20) mg/dL Glucose 114 H (74-99) mg/dL POC Glucose (mg/dL) (70-110) mg/dL Calcium 8.3 L (8.4-10.2) mg/dL Total Bilirubin 2.2 H (0.2-1.3) mg/dL AST 61 H (17-59) U/L Total Protein 5.7 L (6.3-8.2) g/dL Albumin 2.6 L (3.5-5.0) g/dL
[2023-05-24 11:42] LABS: Glucose,Whole Blood 105 mg/dL (70-110)
--- NOTE | 2023-05-24 12:18 | P.PN ---
Subjective Progress Note Date: 05/24/23 History of Presenting Illness: Patient is a pleasant 82-year-old male with a past medical history of CAD status post stenting, atrial fibrillation on anticoagulation with Eliquis, hypertension, hyperlipidemia, renal carcinoma status post right nephrectomy, nonalcoholic liver cirrhosis, and peripheral vascular disease. He presented to the emergency department with a chief complaint of generalized weakness, lower extremity edema and shortness of breath progressively worsening over the past 2 weeks accompanied by urinary retention. He reports that he follows with Dr. Araujo as his primary care doctor and sees Dr. Randle inclined railway operator for management of his cirrhosis. Patient underwent full evaluation in the emergency department. Vital signs upon arrival showing heart rate 124, blood pressure 157/77, respiratory rate 20, temp 97.5F, and SpO2 of 99% on room air. EKG showing sinus tachycardia at 118 bpm with no significant T-wave or ST abnormalities upon personal review and interpretation. CT head completed in radiology report stating age related atrophic and chronic small vessel ischemic changes but negative for acute intracranial process. Chest x-ray reporting increased basilar density concerning for atelectasis and small effusions along with fluid within the right minor fissure versus linear atelectasis. Labs completed and reviewed. CBC showing macrocytic anemia with hemoglobin of 12.2 and thrombocytopenia with platelet count of 114. Coagulation profile showing PT 14.4, INR 1.4, and d-dimer of 5.07. BMP was unremarkable. Blood glucose 88. Lactic acid 2.3 with repeat lactate of 1.6. Liver profile showing transaminitis with hyperbilirubinemia, bilirubin elevated at 2.7, AST 83, ALT 52, and alkaline phosphatase of 186. Troponin 0.020. ProBNP 3080. Urinalysis positive for protein and negative for blood or infection. Influenza A, influenza B, RSV, and Covid PCR were all negative. Patient was admitted under our services to cardiac stepdown unit with continuous telemetry monitoring. Consult placed to Dr. Araujo anode adjuster, Dr. Randle, inclined railway operator, and Dr. Ricardo drapery hand. Meld score 14 Physical exam: Patient seen and fully evaluated at the bedside this morning. Patient resting comfortably this morning and reports feeling okay. He reports continued shortn ess of breath. Barreto catheter in place. Patient's documented urinary output over the past 24 hours was 2550 mL. Vital signs reviewed and stable. General: Nontoxic, patient appears chronically ill Derm: Skin warm and dry, jaundiced. 4 small red raised circumferential rashes to anterior abdomen (tinea corporis) Head: Atraumatic, normocephalic and symmetric. Eyes: EOMs intact, no lid lag, mild scleral icteric Mouth: no lip lesions, mucus membranes moist Cardiovascular: Regular rate with regular rhythm, soft systolic murmur. Anasarca present. Lungs: Respirations even, regular, and unlabored on room air. Lungs diminished, no wheezing/rhonchi/rales/crackles were noted. Abdominal: Distended cirrhotic abdomen. Nontender upon palpation. Hepatomegaly present Ext: No gross muscle atrophy or contractures. Patient with 2-3+ pitting bilateral lower extremity edema extending from bilateral feet extending upwards into groin, scrotum, and penile shaft and into abdomen. Neuro: Speech clear, face symmetrical and CN II-XII grossly intact with no noted focal neuro deficits. Patient is alert to person, place, time, and situation he did have a difficult time with some medications and previous medical history. Psych: Alert and oriented to person, place, time, and situation. Appropriate and pleasant affect. Assessment and Plan of Care: Fluid volume overload resulting from Decompensated Nonalcoholic Liver cirrhosis HFpEF Sinus tachycardia, resolved CAD status post stenting Paroxysmal atrial fibrillation Hypertension Hyperlipidemia Renal cell carcinoma status post right nephrectomy Peripheral vascular disease Transaminitis secondary to cirrhosis Bicytopenia secondary to cirrhosis -Cardiology following, discussed plan of care with Dr. Ricardo. Recommending decreasing Aldactone 12.5 mg and Lasix to 20 mg IVP every 12 hours secondary to soft pressures. -Patient to remain on continuous Telemetry monitoring -Troponins trended resulting at 0.020, 0.026, 0.025, and 0.022. -ProBNP 3080 -Continue strict monitoring of I's and O's and Daily weights. Documented output over the past 24 hours was 2550 mL. -Continue Lasix 40 mg IVP every 8 hours, patient had a documented output of 1500 mL over the past 24 hours -Patient to continue daily medication regimen with Eliquis 5 mg twice daily, metoprolol 25 mg twice daily, and Aldactone 12.5 mg daily. -Meld score 14 -Echocardiogram revealed EF of 50-55% and mild to moderate mitral regurgitation -Consult also placed to GI as they return on 05/25/23, and will then be available for consult. Tineea Corporis -Patient with ringworm infection on abdomen, order placed for Lotrimin cream to be applied twice daily. Urinary retention -Urinary retention is likely secondary to significant anasarca with edema throughout abdomen, groin, scrotal region, penile edema, and bilateral lower extremities. -Patient required Barreto placement in the ED. -Fully to remain in place while patient undergoes IV diuresis while awaiting for edema to improve. Data and imaging reviewed: -Vital signs reviewed. Blood pressure this morning at 97/53, heart rate 71, respiratory rate 16, and temp 98.4F. -Echocardiogram revealed EF of 50-55% and mild to moderate mitral regurgitation -Morning labs reviewed. CBC showing continued macrocytic anemia with hemoglobin stable at 10.4 and thrombocytopenia with platelet count of 98. BMP showed mild prerenal azotemia with BUN of 23 otherwise normal findings. Glucose 114. Liver profile showing total bili of 2.2 and AST of 61 otherwise normal findings. Albumin 2.6. Magnesium 1.8. CODE STATUS: Full code DVT prophylaxis: Eliquis Anticipated discharge date: Clinical course to determine Anticipated discharge place: Clinical course to determine Patient was seen independently by Nurse Practitioner. This document was prepared using iov[employer] dictation software. Please allow for errors in senior c software engineer while rare they do occur. Jin Mcgowan NP rendered care for this patient independently, reviewed the findings and plan as documented in the note above. I did not physically speak with or examine the patient on this date. Objective - Vital Signs Vital signs: Vital Signs Temp 98.4 F 05/24/23 08:00 Pulse 71 05/24/23 08:00 Resp 16 05/24/23 08:00 BP 97/53 05/24/23 08:00 Pulse Ox 94 L 05/24/23 08:00 FiO2 Intake & Output 05/23/23 05/24/23 05/24/23 18:59 06:59 18:59 Intake Total 118 Output Total 1450 1100 Balance -1450 -1100 118 Intake: Oral 118 Output: Urine 1450 1100 Other: Voiding Method Indwelling Catheter Indwelling Catheter - Labs CBC & Chem 7: 05/25/23 06:42 05/25/23 06:42 Labs: Abnormal Lab Results - Last 24 Hours (Table) 05/23/23 05/24/23 Range/Units 20:00 05:55 POC Glucose (mg/dL) 133 H 128 H (70-110) mg/dL
--- NOTE | 2023-05-24 15:22 | P.PN ---
Subjective Progress Note Date: 05/24/23 Principal diagnosis: Generalized weakness with fluid overload secondary to nonalcoholic liver cirrhosis, and acute biventricular heart failure This is a pleasant 82-year-old male patient with a known history of coronary artery disease with previous stent placement, and clearly with all her chest for atrial fibrillation, hypertension, hyperlipidemia, renal cell carcinoma status post nephrectomy, nonalcoholic liver cirrhosis and peripheral vascular disease. He follows with Dr. Irma Chavez for his cirrhosis. He is a primary patient of Dr. Oconnor. He presented to the emergency room yesterday with complaints of increasing lower extremity edema and worsening shortness of breath. He had recently been taken off Lasix and started on Aldactone. ET scan of the chest revealed no definitive pulmonary embolus. Findings compatible with congestive heart failure mild interstitial edema with small to moderate right and small left pleural effusions. Marketed generalized anasarca. White count 5.7. Hemoglobin 12.2. Platelets 114. INR 1.4. D-dimer 5.07. Sodium 141. Potassiu m 4.2. Bicarb 26. BUN 17. Creatinine 0.76. Glucose 88. AST 83. ALT 52. Alk phos 186. ProBNP 3080. Viral screen negative. He is seen today in consultation in the emergency department. He is currently resting fairly comfortably in bed. Awake and alert in no acute distress. Maintaining good O2 saturations in the upper 90s on room air. He's afebrile. Hemodynamically stable. He is having some abdominal discomfort secondary to the ascites. He's been initiated on Lasix 40 mg IV every 8 hours. Currently in a -1.1 L balance. Patient was reevaluated today on 05/24/23, patient is feeling much per her today compared to yesterday. Patient is now on room air with O2 sats of 95% but pat ient is negative at least 4 L of fluids since admission. Obviously he is responding well to diuresis Lasix 40 mg IV push every 8 hours. Overall the patient is feeling better, his CBC is relatively normal his electrolytes are normal BUN showed 23 creatinine 1.10, his baseline creatinine was 0.76 hence Lasix was cut down by cardiology to 20 mg IV push twice a day Objective - Vital Signs Vital signs: Vital Signs Temp 98.4 F 05/24/23 08:00 Pulse 96 05/24/23 12:00 Resp 16 05/24/23 12:00 BP 110/71 05/24/23 12:00 Pulse Ox 94 L 05/24/23 08:00 FiO2 Intake & Output 05/23/23 05/24/23 05/24/23 18:59 06:59 18:59 Intake Total 118 Output Total 1450 1100 1125 Balance -4083 -1308 -3264 Intake: Oral 118 Output: Urine 1450 1100 1125 Other: Voiding Method Indwelling Catheter Indwelling Catheter Indwelling Catheter # Bowel Movements 1 - Exam Physical Exam: Revealed an 82-year-old white male in no distress on room air Head: Atraumatic, normocephalic. 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, on Lotrimin - Labs CBC & Chem 7: 05/24/23 08:49 05/24/23 08:49 Labs: Abnormal Lab Results - Last 24 Hours (Table) 05/23/23 05/24/23 05/24/23 Range/Units 20:00 05:55 08:49 RBC 3.12 L (4.30-5.90) m/uL Hgb 10.4 L (13.0-17.5) gm/dL Hct 31.4 L (39.0-53.0) % MCV 100.7 H (80.0-100.0) fL Plt Count 98 L (150-450) k/uL BUN (9-20) mg/dL Glucose (74-99) mg/dL POC Glucose (mg/dL) 133 H 128 H (70-110) mg/dL Calcium (8.4-10.2) mg/dL Total Bilirubin (0.2-1.3) mg/dL AST (17-59) U/L Total Protein (6.3-8.2) g/dL Albumin (3.5-5.0) g/dL 05/24/23 Range/Units 08:49 RBC (4.30-5.90) m/uL Hgb (13.0-17.5) gm/dL Hct (39.0-53.0) % MCV (80.0-100.0) fL Plt Count (150-450) k/uL BUN 23 H (9-20) mg/dL Glucose 114 H (74-99) mg/dL POC Glucose (mg/dL) (70-110) mg/dL Calcium 8.3 L (8.4-10.2) mg/dL Total Bilirubin 2.2 H (0.2-1.3) mg/dL AST 61 H (17-59) U/L Total Protein 5.7 L (6.3-8.2) g/dL Albumin 2.6 L (3.5-5.0) g/dL Assessment and Plan Assessment: Impression: Fluid overload, most likely secondary to his underlying liver disease, patient presented with generalized edema and anasarca Possible acute diastolic congestive heart failure patient has preserved ejection fraction based on echocardiogram History of renal cell carcinoma status post nephrectomy, right Coronary disease status post stent placement Paroxysmal atrial fibrillation anticoagulated with liquids Hypertension Hyperlipidemia Peripheral vascular disease Recommendation: Continue diuretics and the dose has been cut down to 20 mg IV push twice a day Continue eliquis and metoprolol as well as Aldactone GI to see the patient on consultation regarding his liver disease nonalcoholic liver cirrhosis Continue to monitor daily labs and close follow-up on his renal profile, patient has one kidney only Will follow as needed, patient will be followed closely by cardiology and gastroenterology. When discharged home the patient will need to be on maintenance dose of diuretics including Lasix and probably Aldactone. Time with Patient: Less than 30
[2023-05-24 16:39] LABS: Glucose,Whole Blood 101 mg/dL (70-110)
[2023-05-24 20:37] LABS: Glucose,Whole Blood 112 mg/dL (70-110)
[2023-05-24] MEDS: FUROSEMIDE 10 MG/ML 2 ML VIAL IV SCH (21:28)
[2023-05-25 06:03] LABS: Glucose,Whole Blood 109 mg/dL (70-110)
[2023-05-25 06:53] LABS: HCT 33.8 % (39.0-53.0); HGB 11.2 gm/dL (13.0-17.5); MCH 33.2 pg (25.0-35.0); MCHC 33.1 g/dL (31.0-37.0); MCV 100.5 fL (80.0-100.0); Macrocytosis Slight; Mean Platelet Volume 8.4; Platelet Count 102 k/uL (150-450); RBC 3.36 m/uL (4.30-5.90); RDW 14.2 % (11.5-15.5); WBC 4.9 k/uL (3.8-10.6)
[2023-05-25 07:25] LABS: ALT 39 U/L (4-49); AST 62 U/L (17-59); African American GFR (CKD) 72 (>60 ml/min/1.73 sqM); Albumin 2.6 g/dL (3.5-5.0); Alkaline Phosphatase 137 U/L (38-126); Anion Gap 4 mmol/L; Blood Urea Nitrogen 29 mg/dL (9-20); Carbon Dioxide 30 mmol/L (22-30); Chloride 102 mmol/L (98-107); Glucose 94 mg/dL (74-99); Magnesium 1.9 mg/dL (1.6-2.3); Non-African American GFR(CKD) 62 (>60 ml/min/1.73 sqM); Sodium 136 mmol/L (137-145); Total Bilirubin 1.6 mg/dL (0.2-1.3); Total Protein 5.6 g/dL (6.3-8.2)
[2023-05-25] MEDS: SPIRONOLACTONE 25 MG TAB PO SCH (09:19)
[2023-05-25] MEDS: FUROSEMIDE 10 MG/ML 2 ML VIAL IV SCH ×2 (09:19→20:43)
[2023-05-25] MEDS: APIXABAN 5 MG TAB PO SCH ×2 (09:20→20:42)
[2023-05-25] MEDS: METOPROLOL TARTRATE 25 MG TAB PO SCH ×2 (09:20→20:42)
[2023-05-25] MEDS: CLOTRIMAZOLE 1% CREAM 30 GM TUBE TOPICAL SCH ×2 (09:24→20:42)
[2023-05-25 11:42] LABS: Glucose,Whole Blood 109 mg/dL (70-110)
--- NOTE | 2023-05-25 15:31 | P.CONS ---
History of Present Illness - Reason for Consult Consult date: 05/25/23 Decompensated cirrhosis of the liver Requesting physician: Jin Mcgowan - Chief Complaint Generalized weakness, shortness of breath - History of Present Illness This is a 82-year-old male with a past medical history including cancer of the right kidney status post nephrectomy, coronary artery disease, GERD, hyperlipidemia, hypertension, hypothyroidism, and liver cirrhosis from nonalcoholic fatty liver disease. Patient was brought in by his son for generalized weakness, increased shortness of breath especially with exertion and increased swelling in lower extremities. Patient states he follows with Dr. Buck and he thought he told him to stop taking his Lasix so he has not taken it for the last few months duration. Patient had recently seen Dr. Randle in the last 3 months and was diagnosed with cirrhosis of the liver related to fatty liver disease. He denies any previous paracentesis, he is alert and oriented 3. States lower extremity swelling has progressively gotten worse over last few weeks duration. He has been started on IV Lasix 20 mg twice a day and spironolactone 12.5 mg daily by cardiology. He denies any abdominal pain, nausea or vomiting. No shortness of breath or chest pain at rest. WBC 4.9 hemoglobin 11.2 hematocrit 33, platelet count 102,000 sodium 136 potassium 4.0B 129 creatinine 1.1 total bilirubin 1.6 AST 62 ALT 39 alkaline ph osphatase 137 Review of Systems REVIEW OF SYSTEMS: CARDIOPULMONARY: No chest pain or shortness of breath. He does complain of dyspnea on exertion. Generalized weakness. Lower extremity swelling Gastrointestinal: Burning sensation in epigastric region, no associated abd ominal pain. No nausea or vomiting. No hematemesis, coffee-ground emesis. No rectal bleeding, or melena. GENITOURINARY: No dysuria or hematuria. MUSCULOSKELETAL: Reports normal range of motion. SKIN: Rash on abdomen. No jaundice. ENDOCRINE: No chills, fevers. No excessive weight gain or loss. No polydipsia or polyuria. PSYCHIATRIC: Unremarkable. NEUROLOGY: No change in mental status. Denies dizziness, headache. ENT: Vision unremarkable. CONSTITUTIONAL: No recent weight loss. No fever, chills, night sweats. Generalized weakness. Increased weight and swelling to lower extremities. Past Medical History Past Medical History: Asthma, Cancer, Chest Pain / Angina, GERD/Reflux, Hyperlipidemia, Hypertension, Osteoarthritis (OA), Skin Disorder, Thyroid Disorder Additional Past Medical History / Comment(s): poor circulation terri legs, hx hiatal hernia, gout, hx gastritis, fungal infection on toes, fatigue, hx rt kidney cancer - nephrectomy, has a cane, swelling of terri ankles, liver cirohsis, History of Any Multi-Drug Resistant Organisms: None Reported Past Surgical History: Adenoidectomy, Heart Catheterization, Orthopedic Surgery, Tonsillectomy Additional Past Surgical History / Comment(s): right nephrectomy, rt knee arthroscopy Past Anesthesia/Blood Transfusion Reactions: Motion Sickness Past Psychological History: No Psychological Hx Reported Smoking Status: Former smoker Past Alcohol Use History: Occasional, Rare Past Drug Use History: None Reported - Past Family History Brother(s) Family Medical History: Cancer Father Family Medical History: Cancer Medications and Allergies Home Medications Medication Instructions Recorded Confirmed Type Albuterol Sulfate [Proventil Hfa] 2 puff INHALATION RT-Q4H PRN 05/22/23 05/22/23 History Apixaban [Eliquis] 5 mg PO BID 05/22/23 05/22/23 History Metoprolol Tartrate [Lopressor] 25 mg PO BID 05/22/23 05/22/23 History Spironolactone [Aldactone] 25 mg PO DAILY 05/22/23 05/22/23 History Allergies Allergy/AdvReac Type Severity Reaction Status Date / Time acetaminophen [From [facility]] Allergy "pus in Verified 05/22/23 16:00 eyes" adhesive tape Allergy Rash/Hives Verified 05/22/23 16:00 chlorpheniramine Allergy "pus in Verified 05/22/23 16:00 [From [facility]] eyes" cortisone Allergy Unknown Verified 05/22/23 16:00 gemfibrozil Allergy muscle pain Verified 05/22/23 16:00 oxymetazoline [From [facility]] Allergy "pus in Verified 05/22/23 16:00 eyes" pheniramine [From [facility]] Allergy "pus in Verified 05/22/23 16:00 eyes" phenylephrine [From [facility]] Allergy "pus in Verified 05/22/23 16:00 eyes" pseudoephedrine Allergy "pus in Verified 05/22/23 16:00 [From Kaiden] eyes" Physical Exam Vitals: Vital Signs Temp Pulse Resp BP Pulse Ox 05/25/23 09:27 98.3 F 59 L 18 88/47 96 05/25/23 04:00 56 L 16 94/54 94 L 05/25/23 00:00 63 16 101/53 96 05/24/23 20:00 97.8 F 59 L 16 116/69 96 05/24/23 16:00 78 16 106/49 100 05/24/23 12:00 96 16 110/71 Intake and Output 05/24/23 05/25/23 05/25/23 22:59 06:59 14:59 Intake Total 118 180 Output Total 850 Balance 118 -850 180 Intake: Oral 118 180 Output: Urine 850 Other: Voiding Method Indwelling Catheter Indwelling Catheter Indwelling Catheter General appearance: The patient is alert, oriented, appears in no acute d istress. HET: Head is normocephalic and atraumatic. Conjunctiva pink. Sclera anicteric. Neck: Supple without lymphadenopathy. Trachea midline. Heart: Regular. Lungs: Equal expansion, normal respiratory effort. Abdomen: Soft, nontender, nondistended. No guarding or rigidity. Skin: Abdominal rash. Mild jaundice. Extremities: Normal skin color and turgor. Severe Lower extremity edema. Neurological: No focal deficits. Alert and oriented x3. Results CBC & Chem 7: 05/25/23 06:42 05/25/23 06:42 Labs: Abnormal Lab Results - Last 24 Hours (Table) 05/24/23 05/25/23 05/25/23 Range/Units 20:35 06:42 06:42 RBC 3.36 L (4.30-5.90) m/uL Hgb 11.2 L (13.0-17.5) gm/dL Hct 33.8 L (39.0-53.0) % MCV 100.5 H (80.0-100.0) fL Plt Count 102 L (150-450) k/uL Sodium 136 L (137-145) mmol/L BUN 29 H (9-20) mg/dL POC Glucose (mg/dL) 112 H (70-110) mg/dL Calcium 8.0 L (8.4-10.2) mg/dL Total Bilirubin 1.6 H (0.2-1.3) mg/dL AST 62 H (17-59) U/L Alkaline Phosphatase 137 H (38-126) U/L Total Protein 5.6 L (6.3-8.2) g/dL Albumin 2.6 L (3.5-5.0) g/dL Comments: Chest CTA: Slightly suboptimal contrast bolus and additional limitation due to breathing motion especially in the lower lungs. No definite pulmonary embolus allowing for these limitations. Findings compatible with CHF with mild interstitial edema. Small to moderate right and small left pleural effusions. Adjacent bibasilar opacities, left greater than right, probably atelectasis. Correlate clinically to exclude the possibility of underlying infiltrate. Marked generalized anasarca change likely related to fluid overload state. However there is also mild to moderate upper abdominal ascites fluid. Further appropriate workup and management for possible cirrhosis. Assessment and Plan (1) Liver cirrhosis secondary to nonalcoholic steatohepatitis (BANSAL) Narrative/Plan: 82-year-old male recently diagnosed with cirrhosis secondary to nonalcoholic fatty liver disease was admitted for fluid overload, congestive heart failure. Gastroenterology consulted for decompensated cirrhosis of the liver however patient was noncompliant with his medication and had significant swelling in the lower extremities. Abdomen is soft and no significant amount of ascites. LFTs are stable. No further workup indicated at this time. Patient will follow up with gastroenterology as scheduled. Continue with diuretics, repeat labs tomorrow possibly increase spironolactone. Current Visit: Yes Status: Acute Code(s): K75.81 - NONALCOHOLIC STEATOHEPATITIS (BANSAL); K74.60 - UNSPECIFIED CIRRHOSIS OF LIVER SNOMED Code(s): 112998826 (2) CHF exacerbation Current Visit: Yes Status: Acute Code(s): I50.9 - HEART FAILURE, UNSPECIFIED SNOMED Code(s): 136911969 (3) Weakness Current Visit: Yes Status: Acute Code(s): R53.1 - WEAKNESS SNOMED Code(s): 23130873 Plan: 1. Continue symptomatic and supportive care 2. Continue Lasix as ordered for now recommend Lasix 40 mg daily when discharged 3. Continue spironolactone as ordered for now, may increase for discharge 4. Low-sodium diet 5. Recommend weight loss 6. Repeat BMP tomorrow 7. Patient to follow-up with gastroenterology as scheduled Thank you for this consultation, we will continue to follow Dr. Carmen Randle I agree with the dictator's note, documented as a scribe by Dee Rivera.
--- NOTE | 2023-05-25 16:21 | P.PN ---
Subjective Progress Note Date: 05/25/23 History of Presenting Illness: Patient is a pleasant 82-year-old male with a past medical history of CAD status post stenting, atrial fibrillation on anticoagulation with Eliquis, hypertension, hyperlipidemia, renal carcinoma status post right nephrectomy, nonalcoholic liver cirrhosis, and peripheral vascular disease. He presented to the emergency department with a chief complaint of generalized weakness, lower extremity edema and shortness of breath progressively worsening over the past 2 weeks accompanied by urinary retention. He reports that he follows with Dr. Araujo as his primary care doctor and sees Dr. Randle name plate stamping machine operator for management of his cirrhosis. Patient underwent full evaluation in the emergency department. Vital signs upon arrival showing heart rate 124, blood pressure 157/77, respiratory rate 20, temp 97.5F, and SpO2 of 99% on room air. EKG showing sinus tachycardia at 118 bpm with no significant T-wave or ST abnormalities upon personal review and interpretation. CT head completed in radiology report stating age related atrophic and chronic small vessel ischemic changes but negative for acute intracranial process. Chest x-ray reporting increased basilar density concerning for atelectasis and small effusions along with fluid within the right minor fissure versus linear atelectasis. Labs completed and reviewed. CBC showing macrocytic anemia with hemoglobin of 12.2 and thrombocytopenia with platelet count of 114. Coagulation profile showing PT 14.4, INR 1.4, and d-dimer of 5.07. BMP was unremarkable. Blood glucose 88. Lactic acid 2.3 with repeat lactate of 1.6. Liver profile showing transaminitis with hyperbilirubinemia, bilirubin elevated at 2.7, AST 83, ALT 52, and alkaline phosphatase of 186. Troponin 0.020. ProBNP 3080. Urinalysis positive for protein and negative for blood or infection. Influenza A, influenza B, RSV, and Covid PCR were all negative. Patient was admitted under our services to cardiac stepdown unit with continuous telemetry monitoring. Consult placed to Dr. Araujo copper etcher, Dr. Randle, name plate stamping machine operator, and Dr. Ricardo freight associate. Meld score 14. Echocardiogram revealed EF of 50-55% and mild to moderate mitral regurgitation Physical exam: Patient seen and fully evaluated at the bedside this morning. Patient sitting up in chair this morning. He reports feeling slightly better but still feels very tired and reports shortness of breath with any movement. Barreto catheter in place. Patient's has been undergoing successful IV diuresis with a documented urinary output over the past 24 hours was 1975 mL. Vital signs reviewed and stable. General: Nontoxic, patient appears chronically ill Derm: Skin warm and dry, jaundiced. 4 small red raised circumferential rashes to anterior abdomen (tinea corporis) Head: Atraumatic, normocephalic and symmetric. Eyes: EOMs intact, no lid lag, mild scleral icteric Mouth: no lip lesions, mucus membranes moist Cardiovascular: Regular rate with regular rhythm, soft systolic murmur. Anasarca present. Lungs: Respirations even, regular, and unlabored on room air. Lungs diminished, no wheezing/rhonchi/rales/crackles were noted. Abdominal: Distended cirrhotic abdomen. Nontender upon palpation. Hepatomegaly present Ext: No gross muscle atrophy or contractures. Patient with 2-3+ pitting bilateral lower extremity edema extending from bilateral feet extending upwards into groin, scrotum, and penile shaft and into abdomen. Neuro: Speech clear, face symmetrical and CN II-XII grossly intact with no noted focal neuro deficits. Patient is alert to person, place, time, and situation he did have a difficult time with some medications and previous medical history. Psych: Alert and oriented to person, place, time, and situation. Appropriate and pleasant affect. Assessment and Plan of Care: Fluid volume overload resulting from Decompensated Nonalcoholic Liver cirrhosis HFpEF Sinus tachycardia, resolved CAD status post stenting Paroxysmal atrial fibrillation Hypertension Hyperlipidemia Renal cell carcinoma status post right nephrectomy Peripheral vascular disease Transaminitis secondary to cirrhosis Bicytopenia secondary to cirrhosis -Cardiology following, decreased Aldactone 12.5 mg and Lasix to 20 mg IVP every 12 hours secondary to soft pressures. -Patient to remain on continuous Telemetry monitoring -Continue strict monitoring of I's and O's and Daily weights. Documented output over the past 24 hours was 1975 mL. -Patient to continue daily medication regimen with Eliquis 5 mg twice daily, metoprolol 25 mg twice daily, and Aldactone 12.5 mg daily. -Meld score 14 -Echocardiogram revealed EF of 50-55% and mild to moderate mitral regurgitation -GI following discussed plan of care with gastroenterology Tineea Corporis -Patient with ringworm infection on abdomen, order placed for Lotrimin cream to be applied twice daily. Urinary retention -Urinary retention is likely secondary to significant anasarca with edema throughout abdomen, groin, scrotal region, penile edema, and bilateral lower extremities. -Patient required Barreto placement in the ED. -Fully to remain in place while patient undergoes IV diuresis while awaiting for edema to improve. Data and imaging reviewed: -Vital signs reviewed. Blood pressure this morning at 94/54, heart rate 56, respiratory rate 16, temp 98.3F, and SpO2 of 94% on room air. -Morning labs reviewed. CBC showing continued macrocytic anemia with hemoglobin stable at 11.2 and thrombocytopenia with platelet count of 102. BMP showed mild prerenal azotemia with BUN of 29 otherwise normal findings. Glucose 94. Liver profile showing total bili of 1.6, AST of 62, and alkaline phosphatase of 137. Albumin was 2.6. And magnesium 1.9. CODE STATUS: Full code DVT prophylaxis: Eliquis Anticipated discharge date: Clinical course to determine Anticipated discharge place: Clinical course to determine Patient was seen independently by Nurse Practitioner. This document was prepared using [employer] dictation software. Please allow for errors in hoop puncher while rare they do occur. Jin Mcgowan NP rendered care for this patient independently, reviewed the findings and plan as documented in the note above. I did not physically speak with or examine the patient on this date. Objective - Vital Signs Vital signs: Vital Signs Temp 97.8 F 05/24/23 20:00 Pulse 56 L 05/25/23 04:00 Resp 16 05/25/23 04:00 BP 94/54 05/25/23 04:00 Pulse Ox 94 L 05/25/23 04:00 FiO2 Intake & Output 05/24/23 05/25/23 05/25/23 18:59 06:59 18:59 Intake Total 118 118 180 Output Total 1125 850 Balance -1007 732 180 Intake: Oral 118 118 180 Output: Urine 1125 850 Other: Voiding Method Indwelling Catheter Indwelling Catheter # Bowel Movements 1 - Labs CBC & Chem 7: 05/25/23 06:42 05/25/23 06:42 Labs: Abnormal Lab Results - Last 24 Hours (Table) 05/24/23 05/24/23 05/24/23 Range/Units 08:49 08:49 20:35 RBC 3.12 L (4.30-5.90) m/uL Hgb 10.4 L (13.0-17.5) gm/dL Hct 31.4 L (39.0-53.0) % MCV 100.7 H (80.0-100.0) fL Plt Count 98 L (150-450) k/uL Sodium (137-145) mmol/L BUN 23 H (9-20) mg/dL Glucose 114 H (74-99) mg/dL POC Glucose (mg/dL) 112 H (70-110) mg/dL Calcium 8.3 L (8.4-10.2) mg/dL Total Bilirubin 2.2 H (0.2-1.3) mg/dL AST 61 H (17-59) U/L Alkaline Phosphatase (38-126) U/L Total Protein 5.7 L (6.3-8.2) g/dL Albumin 2.6 L (3.5-5.0) g/dL 05/25/23 05/25/23 Range/Units 06:42 06:42 RBC 3.36 L (4.30-5.90) m/uL Hgb 11.2 L (13.0-17.5) gm/dL Hct 33.8 L (39.0-53.0) % MCV 100.5 H (80.0-100.0) fL Plt Count 102 L (150-450) k/uL Sodium 136 L (137-145) mmol/L BUN 29 H (9-20) mg/dL Glucose (74-99) mg/dL POC Glucose (mg/dL) (70-110) mg/dL Calcium 8.0 L (8.4-10.2) mg/dL Total Bilirubin 1.6 H (0.2-1.3) mg/dL AST 62 H (17-59) U/L Alkaline Phosphatase 137 H (38-126) U/L Total Protein 5.6 L (6.3-8.2) g/dL Albumin 2.6 L (3.5-5.0) g/dL
[2023-05-25 16:50] LABS: Glucose,Whole Blood 101 mg/dL (70-110)
[2023-05-25 20:54] LABS: Glucose,Whole Blood 101 mg/dL (70-110)
--- NOTE | 2023-05-25 21:05 | PN ---
PROGRESS NOTE SUBJECTIVE: Omari is an 82-year-old gentleman who is admitted to hospital with CHF exacerbation, has known coronary artery disease. An echocardiogram on this admission revealed normal LV function with mild to moderate mitral regurgitation. The patient is feeling better. Leg edema has improved but has not resolved. The patient is currently on Eliquis 5 b.i.d., Lasix 20 IV q.12, Lopressor 25 b.i.d. and Aldactone. OBJECTIVE: GENERAL: On exam, comfortable at rest. VITAL SIGNS: Heart rate is 59 beats per minute. Blood pressure is 94/54, respiratory rate is 18. CHEST: Reveals diminished air entry at the bases. HEART: Reveals first and second heart sounds. No gallop. Has a systolic murmur at the apex. ABDOMEN: Soft. EXTREMITIES: Exam of extremities reveals bilateral pitting edema. LABORATORY DATA: Lab shows a hemoglobin of 11.2, potassium is 4, creatinine is 1.1. ASSESSMENT: Acute onset diastolic heart failure, hypertension, dyslipidemia, and coronary artery disease. PLAN: I will continue the Lasix. Echo shows normal LV function. A CT scan of the chest was negative for pulmonary embolism. MMODL / IJN: [id number] /
[2023-05-26 06:10] LABS: Glucose,Whole Blood 93 mg/dL (70-110)
[2023-05-26 09:48] LABS: HCT 37.5 % (39.0-53.0); HGB 12.3 gm/dL (13.0-17.5); MCH 33.6 pg (25.0-35.0); MCHC 32.8 g/dL (31.0-37.0); MCV 102.2 fL (80.0-100.0); Macrocytosis Slight; Mean Platelet Volume 7.9; Platelet Count 114 k/uL (150-450); RBC 3.67 m/uL (4.30-5.90); WBC 4.9 k/uL (3.8-10.6)
[2023-05-26 10:01] LABS: ALT 45 U/L (4-49); AST 74 U/L (17-59); African American GFR (CKD) 72 (>60 ml/min/1.73 sqM); Alkaline Phosphatase 155 U/L (38-126); Anion Gap 6 mmol/L; Blood Urea Nitrogen 30 mg/dL (9-20); Calcium 8.4 mg/dL (8.4-10.2); Carbon Dioxide 32 mmol/L (22-30); Chloride 98 mmol/L (98-107); Glucose 102 mg/dL (74-99); Magnesium 1.9 mg/dL (1.6-2.3); Non-African American GFR(CKD) 63 (>60 ml/min/1.73 sqM); Potassium 3.8 mmol/L (3.5-5.1); Sodium 136 mmol/L (137-145); Total Protein 6.3 g/dL (6.3-8.2)
[2023-05-26] MEDS: CLOTRIMAZOLE 1% CREAM 30 GM TUBE TOPICAL SCH ×2 (10:07→21:01)
[2023-05-26] MEDS: SPIRONOLACTONE 25 MG TAB PO SCH (10:07)
[2023-05-26] MEDS: FUROSEMIDE 10 MG/ML 2 ML VIAL IV SCH (10:07)
[2023-05-26] MEDS: METOPROLOL TARTRATE 25 MG TAB PO SCH ×2 (10:07→21:01)
[2023-05-26] MEDS: APIXABAN 5 MG TAB PO SCH ×2 (10:07→21:01)
--- NOTE | 2023-05-26 13:23 | P.PN ---
Subjective Progress Note Date: 05/26/23 History of Presenting Illness: Patient is a pleasant 82-year-old male with a past medical history of CAD status post stenting, atrial fibrillation on anticoagulation with Eliquis, hypertension, hyperlipidemia, renal carcinoma status post right nephrectomy, nonalcoholic liver cirrhosis, and peripheral vascular disease. He presented to the emergency department with a chief complaint of generalized weakness, lower extremity edema and shortness of breath progressively worsening over the past 2 weeks accompanied by urinary retention. He reports that he follows with Dr. Araujo as his primary care doctor and sees Dr. Randle leather grader for management of his cirrhosis. Patient underwent full evaluation in the emergency department. Vital signs upon arrival showing heart rate 124, blood pressure 157/77, respiratory rate 20, temp 97.5F, and SpO2 of 99% on room air. EKG showing sinus tachycardia at 118 bpm with no significant T-wave or ST abnormalities upon personal review and interpretation. CT head completed in radiology report stating age related atrophic and chronic small vessel ischemic changes but negative for acute intracranial process. Chest x-ray reporting increased basilar density concerning for atelectasis and small effusions along with fluid within the right minor fissure versus linear atelectasis. Labs completed and reviewed. CBC showing macrocytic anemia with hemoglobin of 12.2 and thrombocytopenia with platelet count of 114. Coagulation profile showing PT 14.4, INR 1.4, and d-dimer of 5.07. BMP was unremarkable. Blood glucose 88. Lactic acid 2.3 with repeat lactate of 1.6. Liver profile showing transaminitis with hyperbilirubinemia, bilirubin elevated at 2.7, AST 83, ALT 52, and alkaline phosphatase of 186. Troponin 0.020. ProBNP 3080. Urinalysis positive for protein and negative for blood or infection. Influenza A, influenza B, RSV, and Covid PCR were all negative. Patient was admitted under our services to cardiac stepdown unit with continuous telemetry monitoring. Consult placed to Dr. Araujo software applications specialist, Dr. Randle, leather grader, and Dr. Ricardo party coordinator. Meld score 14. Echocardiogram revealed EF of 50-55% and mild to moderate mitral regurgitation. Patient undergoing successful treatment of IV diuresis. Physical exam: Patient seen and fully evaluated at the bedside this morning. He is sitting up in the chair with legs elevated at this time. He reports overall feeling weak and has been working with physical therapy who is recommending subacute rehab upon discharge. Patient is in agreement with this and first choice is [facility]. Currently other than weakness and occasional shortness of breath patient denies having any needs or concerns at this time. Patient does however report shortness of breath significantly increases with minimal exertion such as moving from bed to chair. Vital signs reviewed and stable. General: Nontoxic, patient appears chronically ill Derm: Skin warm and dry, jaundiced. 4 small red raised circumferential rashes to anterior abdomen (tinea corporis) Head: Atraumatic, normocephalic and symmetric. Eyes: EOMs intact, no lid lag, mild scleral icteric Mouth: no lip lesions, mucus membranes moist Cardiovascular: Regular rate with regular rhythm, soft systolic murmur. Anasarca present. Lungs: Respirations even, regular, and unlabored on room air. Lungs diminished, no wheezing/rhonchi/rales/crackles were noted. Abdominal: Distended cirrhotic abdomen. Nontender upon palpation. Hepatomegaly present Ext: No gross muscle atrophy or contractures. Patient with 2-3+ pitting bilateral lower extremity edema extending from bilateral feet extending upwards into groin, scrotum, and penile shaft and into abdomen. Neuro: Speech clear, face symmetrical and CN II-XII grossly intact with no noted focal neuro deficits. Patient is alert to person, place, time, and situation he did have a difficult time with some medications and previous medical history. Psych: Alert and oriented to person, place, time, and situation. Appropriate and pleasant affect. Assessment and Plan of Care: Fluid volume overload resulting from Decompensated Nonalcoholic Liver cirrhosis HFpEF Sinus tachycardia, resolved CAD status post stenting Paroxysmal atrial fibrillation Hypertension Hyperlipidemia Renal cell carcinoma status post right nephrectomy Peripheral vascular disease Transaminitis secondary to cirrhosis Bicytopenia secondary to cirrhosis Generalized weakness secondary to multiple medical comorbidities and significant edema resulting in physical deconditioning -Cardiology following, decreased Aldactone 12.5 mg and Lasix to 20 mg IVP every 12 hours secondary to soft pressures. -Patient to remain on continuous Telemetry monitoring -Continue strict monitoring of I's and O's and Daily weights. Documented output over the past 24 hours was 1900 mL. -Patient to continue daily medication regimen with Eliquis 5 mg twice daily, metoprolol 25 mg twice daily, and Aldactone 12.5 mg daily. -Meld score 14 -Echocardiogram revealed EF of 50-55% and mild to moderate mitral regurgitation -GI following discussed plan of care with gastroenterology ANALYSIS SPECIALIST, recommend patient resume previously prescribed home dosage of Lasix and Aldactone on discharge. -Physical and occupational therapy following, recommending subacute rehab upon discharge to increase strength, endurance, and overall mobility. Tineea Corporis -Patient with ringworm infection on abdomen, order placed for Lotrimin cream to be applied twice daily. Urinary retention -Urinary retention is likely secondary to significant anasarca with edema throughout abdomen, groin, scrotal region, penile edema, and bilateral lower extremities. -Patient required Barreto placement in the ED. -Fully to remain in place while patient undergoes IV diuresis while awaiting for edema to improve. Data and imaging reviewed: -Vital signs reviewed. Blood pressure this morning at 110/59, heart rate 77, respiratory rate 18, temp 97.9F, and SpO2 of 95% on room air. -Morning labs reviewed. CBC showing stable macrocytic anemia with hemoglobin of 12.3. BMP showing sodium 136, bicarb 32, BUN 30, and blood glucose of 102. Liver profile showing total bili of 3.0, AST 74, ALT 45, and alkaline phosphatase of 155. -Urinary Output over the past 24 hours 1900 mL CODE STATUS: Full code DVT prophylaxis: Eliquis Anticipated discharge date: Clinical course to determine Anticipated discharge place: Clinical course to determine Patient was seen independently by Nurse Practitioner. This document was prepared using [employer] dictation software. Please allow for errors in wastewater treatment plant supervisor while rare they do occur. Jin Mcgowan ANALYSIS SPECIALIST rendered care for this patient independently, reviewed the findings and plan as documented in the note above. I did not physically speak with or examine the patient on this date. Objective - Vital Signs Vital signs: Vital Signs Temp 97.9 F 05/25/23 20:00 Pulse 77 05/26/23 04:00 Resp 18 05/26/23 04:00 BP 110/59 05/26/23 04:00 Pulse Ox 95 05/26/23 04:00 FiO2 Intake & Output 05/25/23 05/26/23 05/26/23 18:59 06:59 18:59 Intake Total 600 Output Total 700 1200 Balance -100 -1200 Weight 91.9 kg Intake: Oral 600 Output: Urine 700 1200 Other: Voiding Method Indwelling Catheter Indwelling Catheter # Voids 1 - Labs CBC & Chem 7: 05/26/23 09:01 05/26/23 09:01
--- NOTE | 2023-05-26 14:46 | P.PN ---
Subjective Progress Note Date: 05/26/23 Principal diagnosis: Cirrhosis This is a 82-year-old male with a past medical history including cancer of the right kidney status post nephrectomy, coronary artery disease, GERD, hyperlipidemia, hypertension, hypothyroidism, and liver cirrhosis from nonalcoholic fatty liver disease. Patient was brought in by his son for generalized weakness, increased shortness of breath especially with exertion and increased swelling in lower extremities. Patient states he follows with Dr. Buck and he thought he told him to stop taking his Lasix so he has not taken it for the last few months duration. Patient had recently seen Dr. Randle in the last 3 months and was diagnosed with cirrhosis of the liver related to fatty liver disease. He denies any previous paracentesis, he is alert and oriented 3. States lower extremity swelling has progressively gotten worse over last few weeks duration. He has been started on IV Lasix 20 mg twice a day and spironolactone 12.5 mg daily by cardiology. He denies any abdominal pain, nausea or vomiting. No shortness of breath or chest pain at rest. WBC 4.9 hemoglobin 11.2 hematocrit 33, platelet count 102,000 sodium 136 potassium 4.0B 129 creatinine 1.1 total bilirubin 1.6 AST 62 ALT 39 alkaline phosphatase 137 05/26/2023 Patient seen and examined today as a follow-up on his known patient to Dr. Randle for cirrhosis of the liver related to nonalcoholic fatty liver disease. Patient is without any complaints at this time. Denies any abdominal pain. Has lower extremity swelling. Continues on IV Lasix 20 mg twice a day and spironolactone 12.5 mg daily. Cardiology following. WBC 4.9 hemoglobin 12.3 platelet count 114,000 BUN 30 creatinine 1.09 Total bilirubin 3.0 AST 74 ALT 45 alkaline phosphatase 155 Objective - Vital Signs Vital signs: Vital Signs Temp 98.4 F 05/26/23 12:00 Pulse 77 05/26/23 12:00 Resp 20 05/26/23 12:00 BP 113/58 05/26/23 12:00 Pulse Ox 95 05/26/23 12:00 FiO2 Intake & Output 05/25/23 05/26/23 05/26/23 18:59 06:59 18:59 Intake Total 600 608 Output Total 700 1200 Balance -100 -1200 608 Weight 91.9 kg Intake: IV 10 Invasive Line 2 10 Oral 600 598 Output: Urine 700 1200 Other: Voiding Method Indwelling Catheter Indwelling Catheter Indwelling Catheter # Voids 1 # Bowel Movements 1 - Exam General appearance: The patient is alert, oriented, appears in no acute distress. Obese HET: Head is normocephalic and atraumatic. Conjunctiva pink. Sclera anicteric. Neck: Supple without lymphadenopathy. Abdomen: Soft, nontender, nondistended. No guarding or rigidity. Extremities: Normal skin color and turgor. Lower extremity edema, bilaterally. Skin: No rashes, jaundice. Neurological: No focal deficits. Alert and oriented. - Labs CBC & Chem 7: 05/26/23 09:01 05/26/23 09:01 Labs: Abnormal Lab Results - Last 24 Hours (Table) 05/26/23 05/26/23 Range/Units 09: 09:01 RBC 3.67 L (4.30-5.90) m/uL Hgb 12.3 L (13.0-17.5) gm/dL Hct 37.5 L (39.0-53.0) % MCV 102.2 H (80.0-100.0) fL Plt Count 114 L (150-450) k/uL Sodium 136 L (137-145) mmol/L Carbon Dioxide 32 H (22-30) mmol/L BUN 30 H (9-20) mg/dL Glucose 102 H (74-99) mg/dL Total Bilirubin 3.0 H (0.2-1.3) mg/dL AST 74 H (17-59) U/L Alkaline Phosphatase 155 H (38-126) U/L Albumin 3.0 L (3.5-5.0) g/dL Assessment and Plan (1) Liver cirrhosis secondary to nonalcoholic steatohepatitis (BANSAL) Narrative/Plan: 82-year-old male recently diagnosed with cirrhosis secondary to nonalcoholic fatty liver disease was admitted for fluid overload, congestive heart failure. Gastroenterology consulted for decompensated cirrhosis of the liver however patient was noncompliant with his medication and had significant swelling in the lower extremities. Abdomen is soft and no significant amount of ascites. LFTs are stable. No further workup indicated at this time. Patient will follow up with gastroenterology as scheduled. Continue with diuretics, repeat labs tomorrow possibly increase spironolactone. Current Visit: Yes Status: Acute Code(s): K75.81 - NONALCOHOLIC STEATOHEPATITIS (BANSAL); K74.60 - UNSPECIFIED CIRRHOSIS OF LIVER SNOMED Code(s): 617678563 (2) CHF exacerbation Current Visit: Yes Status: Acute Code(s): I50.9 - HEART FAILURE, UNSPECIFIED SNOMED Code(s): 090952721 (3) Weakness Current Visit: Yes Status: Acute Code(s): R53.1 - WEAKNESS SNOMED Code(s): 27900308 Plan: 1. Continue symptomatic and supportive care 2. Continue Lasix as ordered for now recommend Lasix 40 mg daily when discharged 3. Continue spironolactone as ordered for now, may increase for discharge 4. Low-sodium diet 5. Recommend weight loss 6. Patient to follow-up with gastroenterology as scheduled Thank you for this consultation, we will continue to follow Dr. Carmne Randle I agree with the dictator's note, documented as a scribe by Dee Rivera.
[2023-05-26 16:38] LABS: Glucose,Whole Blood 105 mg/dL (70-110)
--- NOTE | 2023-05-26 18:43 | P.PN ---
Subjective Progress Note Date: 05/26/23 The patient is an 82-year-old gentleman with known coronary artery disease documented on heart catheterization in 2017 as well as hypertension and dyslipidemia the patient also is on oral anticoagulation for unknown reason he does not recall being diagnosed with atrial fibrillation or any history of DVT o r PE, presented to the hospital complaining of shortness of breath. He describes progressive exertional dyspnea and progressive bilateral lower extremity edema. He stated that he was receiving oral diuretics and that has been stopped recently. He stated that he was diagnosed with heart failure be fore. He stated that he was compliant with his medications and compliant was low sodium diet. He is not quite sure gain any weight. He reports no pain in the chest and no dizziness or lightheadedness and no feeling of heart racing or fluttering and no presyncope or syncope. Other workup was performed including the proBNP came to be needed and chest x-ray showed findings consistent with heart failure. D-dimer was abnormal but CT of the chest did not show any acute abnormalities. The rest of the blood work came in to be unremarkable. The EKG showed sinus mechanism with low-voltage QRS and sinus tachycardia. The patient currently is on Lasix. Examination is remarkable for severe bilateral lower extremity is pitting edema and chronic skin changes and redness in the legs and also bilateral rhonchi and also a systolic murmur at the right and left upper sternal border 05/24/2023 The patient was seen and evaluated this morning. He stated that he is feeling better. He still have bilateral lower extremity edema and when he presented he was having right more than left heart failure. The shortness of breath is improved as well. No pain in the chest. Kidney function remains stable. Pressure is marginal. I'm going to decrease the dose of Lasix just because of the low blood pressure and also decrease the dose of Aldactone. Continue monitor the kidney function and electrolytes and monitor the patient for additional 24 hours. The examination is remarkable for at least moderate bilateral lower extremity is pitting edema. The echo reveals normal LV systolic function was mild to moderate mitral regurgitation 05/26/23 Patient appears more volume overloaded as compared to yesterday. His kidney function is stable with creatinine of 1.09. 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 Continue Aldactone 12.5 mg daily Continue metoprolol 50 mg, Eliquis 5 mg twice a day Objective - Vital Signs Vital signs: Vital Signs Temp 99.5 F 05/26/23 16:26 Pulse 84 05/26/23 16:26 Resp 16 05/26/23 16:26 BP 119/62 05/26/23 16:26 Pulse Ox 95 05/26/23 16:26 FiO2 Intake & Output 05/25/23 05/26/23 05/26/23 18:59 06:59 18:59 Intake Total 600 608 Output Total 700 1200 1000 Balance -100 -1200 -392 Weight 91.9 kg Intake: IV 10 Invasive Line 2 10 Oral 600 598 Output: Urine 700 1200 1000 Other: Voiding Method Indwelling Catheter Indwelling Catheter Indwelling Catheter # Voids 1 # Bowel Movements 1 - Labs CBC & Chem 7: 05/26/23 09:01 05/26/23 09:01 Labs: Abnormal Lab Results - Last 24 Hours (Table) 05/26/23 05/26/23 Range/Units 09:01 09:01 RBC 3.67 L (4.30-5.90) m/uL Hgb 12.3 L (13.0-17.5) gm/dL Hct 37.5 L (39.0-53.0) % MCV 102.2 H (80.0-100.0) fL Plt Count 114 L (150-450) k/uL Sodium 136 L (137-145) mmol/L Carbon Dioxide 32 H (22-30) mmol/L BUN 30 H (9-20) mg/dL Glucose 102 H (74-99) mg/dL Total Bilirubin 3.0 H (0.2-1.3) mg/dL AST 74 H (17-59) U/L Alkaline Phosphatase 155 H (38-126) U/L Albumin 3.0 L (3.5-5.0) g/dL
[2023-05-26 20:06] LABS: Glucose,Whole Blood 104 mg/dL (70-110)
[2023-05-26] MEDS: FUROSEMIDE 10 MG/ML 4 ML VIAL IV SCH (21:01)
[2023-05-27 06:22] LABS: Glucose,Whole Blood 105 mg/dL (70-110)
[2023-05-27] MEDS: APIXABAN 5 MG TAB PO SCH ×2 (08:39→21:09)
[2023-05-27] MEDS: SPIRONOLACTONE 25 MG TAB PO SCH (08:40)
[2023-05-27] MEDS: FUROSEMIDE 10 MG/ML 4 ML VIAL IV SCH ×2 (08:40→16:19)
[2023-05-27] MEDS: METOPROLOL TARTRATE 25 MG TAB PO SCH ×2 (08:40→21:09)
[2023-05-27] MEDS: CLOTRIMAZOLE 1% CREAM 30 GM TUBE TOPICAL SCH ×2 (08:44→21:09)
[2023-05-27] MEDS ORDERED: TAMSULOSIN 0.4 MG CAP.ER.24H PO STA (08:48)
[2023-05-27 09:56] LABS: HCT 33.1 % (39.0-53.0); HGB 10.9 gm/dL (13.0-17.5); MCH 33.1 pg (25.0-35.0); MCHC 32.9 g/dL (31.0-37.0); MCV 100.7 fL (80.0-100.0); Macrocytosis Slight; Mean Platelet Volume 8.1; RBC 3.29 m/uL (4.30-5.90); RDW 14.3 % (11.5-15.5); WBC 3.5 k/uL (3.8-10.6)
[2023-05-27 10:01] LABS: ALT 41 U/L (4-49); AST 71 U/L (17-59); African American GFR (CKD) 72 (>60 ml/min/1.73 sqM); Albumin 2.5 g/dL (3.5-5.0); Alkaline Phosphatase 97 U/L (38-126); Anion Gap 7 mmol/L; Blood Urea Nitrogen 30 mg/dL (9-20); Calcium 7.9 mg/dL (8.4-10.2); Carbon Dioxide 30 mmol/L (22-30); Chloride 96 mmol/L (98-107); Glucose 111 mg/dL (74-99); Magnesium 1.9 mg/dL (1.6-2.3); Non-African American GFR(CKD) 63 (>60 ml/min/1.73 sqM); Potassium 3.8 mmol/L (3.5-5.1); Sodium 133 mmol/L (137-145); Total Protein 5.5 g/dL (6.3-8.2)
[2023-05-27 10:02] LABS: Platelet Count 77 k/uL (150-450)
[2023-05-27 11:19] LABS: Glucose,Whole Blood 136 mg/dL (70-110)
[2023-05-27 12:38] VITALS: BMI 30.8
--- NOTE | 2023-05-27 14:04 | P.PN ---
Subjective HISTORY OF PRESENT ILLNESS: The patient is an 82-year-old gentleman with known coronary artery disease documented on heart catheterization in 2017 as well as hypertension and dyslipidemia the patient also is on oral anticoagulation for unknown reason he does not recall being diagnosed with atrial fibrillation or any history of DVT or PE, presented to the hospital complaining of shortness of breath. He describes progressive exertional dyspnea and progressive bilateral lower extremity edema. He stated that he was receiving oral diuretics and that has been stopped recently. He stated that he was diagnosed with heart failure before. He stated that he was compliant with his medications and compliant was low sodium diet. He is not quite sure gain any weight. He reports no pain in the chest and no dizziness or lightheadedness and no feeling of heart racing or fluttering and no presyncope or syncope. Other workup was performed including the proBNP came to be needed and chest x-ray showed findings consistent with heart failure. D-dimer was abnormal but CT of the chest did not show any acute abnormalities. The rest of the blood work came in to be unremarkable. The EKG showed sinus mechanism with low-voltage QRS and sinus tachycardia. The patient currently is on Lasix. Examination is remarkable for severe bilateral lower extremity is pitting edema and chronic skin changes and redness in the legs and also bilateral rhonchi and also a systolic murmur at the right and left upper sternal border 05/24/2023 The patient was seen and evaluated this morning. He stated that he is feeling better. He still have bilateral lower extremity edema and when he presented he was having right more than left heart failure. The shortness of breath is improved as well. No pain in the chest. Kidney function remains stable. Pressure is marginal. I'm going to decrease the dose of Lasix just because of the low blood pressure and also decrease the dose of Aldactone. Continue monitor the kidney function and electrolytes and monitor the patient for additional 24 hours. The examination is remarkable for at least moderate bilateral lower extremity is pitting edema. The echo reveals normal LV systolic function was mild to moderate mitral regurgitation 05/26/23 Patient appears more volume overloaded as compared to yesterday. His kidney function is stable with creatinine of 1.09. Echo showed EF of 50-50%, [id number] MR 05/27/2023 patient examined this morning at the bedside. Patient currently denies chest pain or pressure. He reports mild shortness of breath with a frequent cough. He continues to have lower extremity edema, although improved from yesterday. Vital signs are stable. Telemetry reveals atrial fibrillation with controlled ventricular rate. PHYSICAL EXAM: VITAL SIGNS: Reviewed. GENERAL: Well-developed in no acute distress. NECK: Supple. No JVD or thyromegaly LUNGS: Respirations even and unlabored. Lungs diminished with crackles at the bases. Cough noted. HEART: Regular rate and rhythm. S1 and S2 heard. EXTREMITIES: Normal range of motion. No clubbing or cyanosis. Peripheral pulses intact. Bilateral lower extremity edema noted ASSESSMENT: Acute heart failure with preserved ejection fraction Paroxysmal atrial fibrillation, currently rate controlled Coronary artery disease Hypertension Hyperlipidemia PLAN: Continue IV Lasix Daily weights, accurate I&O, and monitoring of kidney function Give 1 dose of Flomax. Discontinue Barreto and attempt voiding trial per Dr. Yadav Obtain chest x-ray tomorrow Further recommendations pending patient's course Nurse practitioner note has been reviewed by physician. Signing provider agrees with the documented findings, assessment, and plan of care. Objective - Vital Signs Vital signs: Vital Signs Temp 98.1 F 05/27/23 08:00 Pulse 77 05/27/23 12:00 Resp 16 05/27/23 12:00 BP 115/63 05/27/23 12:00 Pulse Ox 96 05/27/23 12:00 FiO2 Intake & Output 05/26/23 05/27/23 05/27/23 18:59 06:59 18:59 Intake Total 608 Output Total 2362 741 3872 Balance -392 -900 -1000 Weight 91.9 kg 91.9 kg Intake: IV 10 Invasive Line 2 10 Oral 598 Output: Urine 9280 980 6265 Other: Voiding Method Indwelling Catheter Indwelling Catheter Indwelling Catheter # Bowel Movements 1 - Labs CBC & Chem 7: 05/27/23 08:52 05/27/23 08:52 Labs: Abnormal Lab Results - Last 24 Hours (Table) 05/27/23 05/27/23 05/27/23 Range/Units 08:52 08:52 11:17 WBC 3.5 L (3.8-10.6) k/uL RBC 3.29 L (4.30-5.90) m/uL Hgb 10.9 L (13.0-17.5) gm/dL Hct 33.1 L (39.0-53.0) % MCV 100.7 H (80.0-100.0) fL Plt Count 77 L (150-450) k/uL Sodium 133 L (137-145) mmol/L Chloride 96 L (98-107) mmol/L BUN 30 H (9-20) mg/dL Glucose 111 H (74-99) mg/dL POC Glucose (mg/dL) 136 H (70-110) mg/dL Calcium 7.9 L (8.4-10.2) mg/dL Total Bilirubin 2.0 H (0.2-1.3) mg/dL AST 71 H (17-59) U/L Total Protein 5.5 L (6.3-8.2) g/dL Albumin 2.5 L (3.5-5.0) g/dL
[2023-05-27 16:42] LABS: Glucose,Whole Blood 98 mg/dL (70-110)
--- NOTE | 2023-05-27 16:54 | P.PN ---
Subjective Progress Note Date: 05/27/23 (delayed charting seen at 1130) Patient is an 82-year-old male with known coronary artery disease status post stenting, A. fib on anticoagulation with Eliquis, hypertension, dyslipidemia, nonalcoholic liver cirrhosis, and peripheral vascular disease who initially presented to the emergency department with complaints of lower extremity and scrotal edema. In the emergency department his vitals are within normal limits. EKG was rectal for sinus tachycardia. CT head showed age-related atrophy with chronic small vessel ischemic changes but no acute intracranial process. Chest x-ray showed increased basilar density concerning for atelectasis and effusion. Labs were remarkable for hemoglobin 12.2, platelets 114, INR 1.4, d-dimer 5.07, T bili of 2.7 and lactic acid of 2.3. Urinalysis was negative for signs of infection. Influenza A/B/RSV/COVID-19 testing was negative. Patient was subsequently admitted and started on IV diuresis. Pulmonary, GI, and cardiology were consulted. Mental score was noted to be 14. Echocardiogram came back with ejection fraction 50-55%, with mild to moderate mitral regurgitation. Patient seen and examined at bedside. Vital signs reviewed General: nontoxic, no distress, appears at stated age Cardiovascular: S1S2 reg, no murmur, positive posterior tibial pulse bilateral, Lungs: CTA bilateral, no rhonchi, no rales , no accessory muscle use Abdominal: soft, nontender to palpation, no guarding, no appreciable organomegaly Ext: no gross muscle atrophy, no edema b/l lower extremities, no contractures Neuro: CN II-XI grossly intact, no focal neuro deficits Psych: Alert, oriented, appropriate affect Assessment/Plan: Decompensated stated nonalcoholic cirrhosis Generalized debility secondary to multiple medical comorbidities resulting in physical deconditioning Pancytopenia related to cirrhosis -Increase Lasix to 40 mg 3 times daily, increase Aldactone to 25 mg daily -Monitor basic metabolic profile potassium level to ensure electrolytes remained stable using IV diuretics -GI recommendations reviewed: Outpatient follow-up, low-sodium diet -Strict I's and O's, daily weights -Follow CBC Compensated diastolic congestive heart failure with preserved ejection fraction at 50-55% Sinus tachycardia, resolved CAD status post stenting Paroxysmal atrial fibrillation Hypertension Hyperlipidemia -Eliquis 5 mg twice daily, Lopressor 25 mg twice daily -Cardiology note reviewed: Continue with IV Lasix, 1 dose of Flomax to discontinue Barreto Tineea Corporis -Patient with ringworm infection on abdomen, order placed for Lotrimin cream to be applied twice daily. Urinary retention -Urinary retention is likely secondary to significant anasarca with edema throughout abdomen, groin, scrotal region, penile edema, and bilateral lower extremities. -Patient required Barreto placement in the ED. -Fully to remain in place while patient undergoes IV diuresis while awaiting for edema to improve. Chronic: Renal cell carcinoma status post right nephrectomy Peripheral vascular disease Imaging: None new Data Review: Labs reviewed today include CBC and CMP which are remarkable for white blood cell count 3.5, hemoglobin 10.9, platelets 77, sodium 133, AST 71, total bilirubin 2 DVT prophylaxis: Eliquis Anticipated discharge date: Pending Clinical Course Anticipated discharge place: Pending Clinical Course This dictation was prepared using [employer] voice recognition software. Though every attempt is made to correct errors during dictation some may still exist. Objective - Vital Signs Vital signs: Vital Signs Temp 98.1 F 05/27/23 08:00 Pulse 76 05/27/23 16:00 Resp 16 05/27/23 16:00 BP 91/50 05/27/23 16:00 Pulse Ox 95 05/27/23 16:00 FiO2 Intake & Output 05/26/23 05/27/23 05/27/23 18:59 06:59 18:59 Intake Total 608 Output Total 7096 197 9438 Balance -392 -900 -1000 Weight 91.9 kg 91.9 kg Intake: IV 10 Invasive Line 2 10 Oral 598 Output: Urine 7024 899 2078 Other: Voiding Method Indwelling Catheter Indwelling Catheter Indwelling Catheter # Bowel Movements 1 - Labs CBC & Chem 7: 05/27/23 08:52 05/27/23 08:52 Labs: Abnormal Lab Results - Last 24 Hours (Table) 05/27/23 05/27/23 05/27/23 Range/Units 08:52 08:52 11:17 WBC 3.5 L (3.8-10.6) k/uL RBC 3.29 L (4.30-5.90) m/uL Hgb 10.9 L (13.0-17.5) gm/dL Hct 33.1 L (39.0-53.0) % MCV 100.7 H (80.0-100.0) fL Plt Count 77 L (150-450) k/uL Sodium 133 L (137-145) mmol/L Chloride 96 L (98-107) mmol/L BUN 30 H (9-20) mg/dL Glucose 111 H (74-99) mg/dL POC Glucose (mg/dL) 136 H (70-110) mg/dL Calcium 7.9 L (8.4-10.2) mg/dL Total Bilirubin 2.0 H (0.2-1.3) mg/dL AST 71 H (17-59) U/L Total Protein 5.5 L (6.3-8.2) g/dL Albumin 2.5 L (3.5-5.0) g/dL
--- NOTE | 2023-05-27 17:54 | P.PN ---
Subjective Progress Note Date: 05/27/23 Principal diagnosis: Cirrhosis This is a 82-year-old male with a past medical history including cancer of the right kidney status post nephrectomy, coronary artery disease, GERD, hyperlipidemia, hypertension, hypothyroidism, and liver cirrhosis from nonalcoholic fatty liver disease. Patient was brought in by his son for generalized weakness, increased shortness of breath especially with exertion and increased swelling in lower extremities. Patient states he follows with Dr. Buck and he thought he told him to stop taking his Lasix so he has not taken it for the last few months duration. Patient had recently seen Dr. Randle in the last 3 months and was diagnosed with cirrhosis of the liver related to fatty liver disease. He denies any previous paracentesis, he is alert and oriented 3. States lower extremity swelling has progressively gotten worse over last few weeks duration. He has been started on IV Lasix 20 mg twice a day and spironolactone 12.5 mg daily by cardiology. He denies any abdominal pain, nausea or vomiting. No shortness of breath or chest pain at rest. WBC 4.9 hemoglobin 11.2 hematocrit 33, platelet count 102,000 sodium 136 potassium 4.0B 129 creatinine 1.1 total bilirubin 1.6 AST 62 ALT 39 alkaline phosphatase 137 05/26/2023 Patient seen and examined today as a follow-up on his known patient to Dr. Randle for cirrhosis of the liver related to nonalcoholic fatty liver disease. Patient is without any complaints at this time. Denies any abdominal pain. Has lower extremity swelling. Continues on IV Lasix 20 mg twice a day and spironolactone 12.5 mg daily. Cardiology following. WBC 4.9 hemoglobin 12.3 platelet count 114,000 BUN 30 creatinine 1.09 Total bilirubin 3.0 AST 74 ALT 45 alkaline phosphatase 155 05/27/2023 Patient seen and examined today as a follow-up. He is resting comfortably. He states no acute changes through the night. WBC 3.5 hemoglobin 10.9 platelet count 77,000 total bilirubin 2.0 AST 71 ALT 41 alkaline phosphatase 97 Objective - Vital Signs Vital signs: Vital Signs Temp 99.5 F 05/26/23 16:26 Pulse 80 05/27/23 04:00 Resp 18 05/27/23 04:00 BP 107/62 05/27/23 04:00 Pulse Ox 93 L 05/27/23 04:00 FiO2 Intake & Output 11/28/23 11/29/23 11/29/23 18:59 06:59 18:59 Intake Total 608 Output Total 1000 900 Balance -392 -900 Weight 91.9 kg Intake: IV 10 Invasive Line 2 10 Oral 598 Output: Urine 1000 900 Other: Voiding Method Indwelling Catheter Indwelling Catheter # Bowel Movements 1 - Exam General appearance: The patient is alert, oriented, appears in no acute distress. Obese HET: Head is normocephalic and atraumatic. Conjunctiva pink. Sclera anicteric. Neck: Supple without lymphadenopathy. Abdomen: Soft, nontender, nondistended. No guarding or rigidity. Extremities: Normal skin color and turgor. Lower extremity edema, bilaterally. Skin: No rashes, jaundice. Neurological: No focal deficits. Alert and oriented. - Labs CBC & Chem 7: 05/27/23 08:52 05/27/23 08:52 Labs: Abnormal Lab Results - Last 24 Hours (Table) 05/26/23 05/26/23 Range/Units 09:01 09:01 RBC 3.67 L (4.30-5.90) m/uL Hgb 12.3 L (13.0-17.5) gm/dL Hct 37.5 L (39.0-53.0) % MCV 102.2 H (80.0-100.0) fL Plt Count 114 L (150-450) k/uL Sodium 136 L (137-145) mmol/L Carbon Dioxide 32 H (22-30) mmol/L BUN 30 H (9-20) mg/dL Glucose 102 H (74-99) mg/dL Total Bilirubin 3.0 H (0.2-1.3) mg/dL AST 74 H (17-59) U/L Alkaline Phosphatase 155 H (38-126) U/L Albumin 3.0 L (3.5-5.0) g/dL Assessment and Plan (1) Liver cirrhosis secondary to nonalcoholic steatohepatitis (BANSAL) Narrative/Plan: 82-year-old male recently diagnosed with cirrhosis secondary to nonalcoholic fatty liver disease was admitted for fluid overload, congestive heart failure. Gastroenterology consulted for decompensated cirrhosis of the liver however patient was noncompliant with his medication and had significant swelling in the lower extremities. Abdomen is soft and no significant amount of ascites. LFTs are stable. No further workup indicated at this time. Patient will follow up with gastroenterology as scheduled. Continue with diuretics, repeat labs tomorrow possibly increase spironolactone. Current Visit: Yes Status: Acute Code(s): K75.81 - NONALCOHOLIC STEATOHEPATITIS (BANSAL); K74.60 - UNSPECIFIED CIRRHOSIS OF LIVER SNOMED Code(s): 065633540 (2) CHF exacerbation Current Visit: Yes Status: Acute Code(s): I50.9 - HEART FAILURE, UNSPECIFIED SNOMED Code(s): 125652249 (3) Weakness Current Visit: Yes Status: Acute Code(s): R53.1 - WEAKNESS SNOMED Code(s): 86386678 Plan: 1. Continue symptomatic and supportive care 2. Continue Lasix as ordered for now recommend Lasix 40 mg daily when discharged 3. Continue spironolactone, increase to 25-50 mg daily on discharge if okay with cardiology 4. Low-sodium diet 5. Recommend weight loss 6. Patient to follow-up with gastroenterology as scheduled Thank you for this consultation, patient is stable from a gastroenterology standpoint for discharge. We will sign off at this time. Dr. Carmen Randle I agree with the dictator's note, documented as a scribe by Dee Rivera.
[2023-05-27 20:17] LABS: Glucose,Whole Blood 113 mg/dL (70-110)
[2023-05-28] MEDS: FUROSEMIDE 10 MG/ML 4 ML VIAL IV SCH ×3 (00:30→20:33)
[2023-05-28 06:05] LABS: Glucose,Whole Blood 109 mg/dL (70-110)
[2023-05-28] MEDS: APIXABAN 5 MG TAB PO SCH ×2 (09:09→20:32)
[2023-05-28] MEDS: SPIRONOLACTONE 25 MG TAB PO SCH (09:09)
[2023-05-28] MEDS: METOPROLOL TARTRATE 25 MG TAB PO SCH ×2 (09:10→20:32)
[2023-05-28] MEDS: CLOTRIMAZOLE 1% CREAM 30 GM TUBE TOPICAL SCH ×2 (09:10→20:33)
[2023-05-28 09:14] VITALS: RESP 16
[2023-05-28 09:21] LABS: African American GFR (CKD) 78 (>60 ml/min/1.73 sqM); Anion Gap 9 mmol/L; Blood Urea Nitrogen 28 mg/dL (9-20); Calcium 7.7 mg/dL (8.4-10.2); Carbon Dioxide 30 mmol/L (22-30); Chloride 94 mmol/L (98-107); Glucose 116 mg/dL (74-99); Non-African American GFR(CKD) 67 (>60 ml/min/1.73 sqM); Potassium 3.5 mmol/L (3.5-5.1); Sodium 133 mmol/L (137-145)
--- NOTE | 2023-05-28 09:39 | XR ---
EXAMINATION TYPE: XR chest 2V DATE OF EXAM: 05/28/2023 COMPARISON: 05/22/2023 HISTORY: Shortness of breath TECHNIQUE: Frontal and lateral views of the chest are obtained. FINDINGS: Scattered senescent parenchymal changes noted. Hyperinflation compatible with COPD. Pulmonary venous congestion with small effusions and linear atelectasis about the right perihilar reg ion. Heart size is stable. Mediastinal structures are stable and grossly unremarkable. No evidence for hilar prominence. Degenerative changes dorsal spine. IMPRESSION: 1. Pulmonary venous congestion with small effusions and linear atelectasis about the right perihilar region.
--- NOTE | 2023-05-28 11:17 | P.PN ---
Subjective HISTORY OF PRESENT ILLNESS: The patient is an 82-year-old gentleman with known coronary artery disease documented on heart catheterization in 2017 as well as hypertension and dyslipidemia the patient also is on oral anticoagulation for unknown reason he does not recall being diagnosed with atrial fibrillation or any history of DVT or PE, presented to the hospital complaining of shortness of breath. He describes progressive exertional dyspnea and progressive bilateral lower extremity edema. He stated that he was receiving oral diuretics and that has been stopped recently. He stated that he was diagnosed with heart failure before. He stated that he was compliant with his medications and compliant was low sodium diet. He is not quite sure gain any weight. He reports no pain in the chest and no dizziness or lightheadedness and no feeling of heart racing or fluttering and no presyncope or syncope. Other workup was performed including the proBNP came to be needed and chest x-ray showed findings consistent with heart failure. D-dimer was abnormal but CT of the chest did not show any acute abnormalities. The rest of the blood work came in to be unremarkable. The EKG showed sinus mechanism with low-voltage QRS and sinus tachycardia. The patient currently is on Lasix. Examination is remarkable for severe bilateral lower extremity is pitting edema and chronic skin changes and redness in the legs and also bilateral rhonchi and also a systolic murmur at the right and left upper sternal border 05/24/2023 The patient was seen and evaluated this morning. He stated that he is feeling better. He still have bilateral lower extremity edema and when he presented he was having right more than left heart failure. The shortness of breath is improved as well. No pain in the chest. Kidney function remains stable. Pressure is marginal. I'm going to decrease the dose of Lasix just because of the low blood pressure and also decrease the dose of Aldactone. Continue monitor the kidney function and electrolytes and monitor the patient for additional 24 hours. The examination is remarkable for at least moderate bilateral lower extremity is pitting edema. The echo reveals normal LV systolic function was mild to moderate mitral regurgitation 05/26/23 Patient appears more volume overloaded as compared to yesterday. His kidney function is stable with creatinine of 1.09. Echo showed EF of 50-50%, [id number] MR 05/27/2023 patient examined this morning at the bedside. Patient currently denies chest pain or pressure. He reports mild shortness of breath with a frequent cough. He continues to have lower extremity edema, although improved from yesterday. Vital signs are stable. Telemetry reveals atrial fibrillation with controlled ventricular rate. 05/28/2023 Patient examined this morning at the bedside. Patient currently denies chest pain or pressure. He reports mild shortness of breath. Patient remains on IV Lasix. IV Lasix was increased yesterday to every 8 hours per primary medicine. Patient's Barreto catheter has been discontinued and patient is voiding per urinal. Urine output over the last 24 hours is 2300 mL. Kidney function remains stable. Creatinine 1.03. PHYSICAL EXAM: VITAL SIGNS: Reviewed. GENERAL: Well-developed in no acute distress. NECK: Supple. No JVD or thyromegaly LUNGS: Respirations even and unlabored. Lungs diminished with crackles at the bases. Cough noted. HEART: Regular rate and rhythm. S1 and S2 heard. EXTREMITIES: Normal range of motion. No clubbing or cyanosis. Peripheral pulses intact. Bilateral lower extremity edema noted ASSESSMENT: Acute heart failure with preserved ejection fraction Paroxysmal atrial fibrillation, currently rate controlled Coronary artery disease Hypertension Hyperlipidemia PLAN: Continue IV Lasix. Decrease dosing to every 12 hours. Daily weights, accurate I&O, and monitoring of kidney function Continue additional cardiac medications Further recommendations pending patient's course Nurse practitioner note has been reviewed by physician. Signing provider agrees with the documented findings, assessment, and plan of care. Objective - Vital Signs Vital signs: Vital Signs Temp 98 F 05/28/23 08:00 Pulse 60 05/28/23 08:00 Resp 16 05/28/23 08:00 BP 91/56 05/28/23 08:00 Pulse Ox 98 05/28/23 08:00 FiO2 Intake & Output 05/27/23 05/28/23 05/28/23 18:59 06:59 18:59 Intake Total 0 Output Total 1400 900 Balance -1400 -900 Weight 91.9 kg 90.6 kg Intake: Oral 0 Output: Urine 1400 900 Other: Voiding Method Indwelling Catheter Indwelling Catheter - Labs CBC & Chem 7: 05/27/23 08:52 05/28/23 08:04 Labs: Abnormal Lab Results - Last 24 Hours (Table) 05/27/23 05/27/23 05/27/23 Range/Units 08:52 08:52 11:17 WBC 3.5 L (3.8-10.6) k/uL RBC 3.29 L (4.30-5.90) m/uL Hgb 10.9 L (13.0-17.5) gm/dL Hct 33.1 L (39.0-53.0) % MCV 100.7 H (80.0-100.0) fL Plt Count 77 L (150-450) k/uL Sodium 133 L (137-145) mmol/L Chloride 96 L (98-107) mmol/L BUN 30 H (9-20) mg/dL Glucose 111 H (74-99) mg/dL POC Glucose (mg/dL) 136 H (70-110) mg/dL Calcium 7.9 L (8.4-10.2) mg/dL Total Bilirubin 2.0 H (0.2-1.3) mg/dL AST 71 H (17-59) U/L Total Protein 5.5 L (6.3-8.2) g/dL Albumin 2.5 L (3.5-5.0) g/dL 05/27/23 Range/Units 20:16 WBC (3.8-10.6) k/uL RBC (4.30-5.90) m/uL Hgb (13.0-17.5) gm/dL Hct (39.0-53.0) % MCV (80.0-100.0) fL Plt Count (150-450) k/uL Sodium (137-145) mmol/L Chloride (98-107) mmol/L BUN (9-20) mg/dL Glucose (74-99) mg/dL POC Glucose (mg/dL) 113 H (70-110) mg/dL Calcium (8.4-10.2) mg/dL Total Bilirubin (0.2-1.3) mg/dL AST (17-59) U/L Total Protein (6.3-8.2) g/dL Albumin (3.5-5.0) g/dL
[2023-05-28 11:32] LABS: Glucose,Whole Blood 99 mg/dL (70-110)
[2023-05-28] MEDS: DAPAGLIFLOZIN PROPANEDIOL 10 MG TABLET PO SCH (16:36)
[2023-05-28 16:47] LABS: Glucose,Whole Blood 95 mg/dL (70-110)
--- NOTE | 2023-05-28 17:12 | P.PN ---
Subjective Progress Note Date: 05/28/23 (randy charting seen at 1045) Patient is an 82-year-old male with known coronary artery disease status post stenting, A. fib on anticoagulation with Eliquis, hypertension, dyslipidemia, nonalcoholic liver cirrhosis, and peripheral vascular disease who initially presented to the emergency department with complaints of lower extremity and scrotal edema. In the emergency department his vitals are within normal limits. EKG was rectal for sinus tachycardia. CT head showed age-related atrophy with chronic small vessel ischemic changes but no acute intracranial process. Chest x-ray showed increased basilar density concerning for atelectasis and effusion. Labs were remarkable for hemoglobin 12.2, platelets 114, INR 1.4, d-dimer 5.07, T bili of 2.7 and lactic acid of 2.3. Urinalysis was negative for signs of infection. Influenza A/B/RSV/COVID-19 testing was negative. Patient was subsequently admitted and started on IV diuresis. Pulmonary, GI, and cardiology were consulted. Meld score was noted to be 14. Echocardiogram came back with ejection fraction 50-55%, with mild to moderate mitral regurgitation. Patient seen and examined at bedside. He is feeling very tired today. He has no other complaints at this time. He does admit that he is still swollen, he does not see an appreciable difference from yesterday. Vital signs reviewed General: nontoxic, no distress, appears at stated age Cardiovascular: S1S2 reg, no murmur, positive posterior tibial pulse bilateral, Lungs: Course bs bilateral, no rhonchi, no rales , no accessory muscle use Abdominal: soft, nontender to palpation, no guarding, no appreciable organomegaly Ext: no gross muscle atrophy, 4+ edema b/l LE, , no contractures Neuro: CN II-XI grossly intact, no focal neuro deficits Psych: Alert, oriented, appropriate affect Assessment/Plan: Decompensated stated nonalcoholic cirrhosis Generalized debility secondary to multiple medical comorbidities resulting in physical deconditioning Pancytopenia related to cirrhosis -Lasix 40 mg 2 times daily,Aldactone to 25 mg daily -Monitor basic metabolic profile potassium level to ensure electrolytes remained stable using IV diuretics -GI recommendations: Outpatient follow-up, low-sodium diet -Strict I's and O's, daily weights -Follow CBC Compensated diastolic congestive heart failure with preserved ejection fraction at 50-55% Sinus tachycardia, resolved CAD status post stenting Paroxysmal atrial fibrillation Hypertension Hyperlipidemia -Eliquis 5 mg twice daily, Lopressor 25 mg twice daily -Cardiology note reviewed: Decrease Lasix to every 12 hours Tinea Corporis -Patient with ringworm infection on abdomen, order placed for Lotrimin cream to be applied twice daily. Urinary retention, resolved Chronic: Renal cell carcinoma status post right nephrectomy Peripheral vascular disease Imaging: None new Data Review: Labs reviewed from today include basic metabolic profile which is remarkable for BUN 28 and sodium 133 DVT prophylaxis: Eliquis Anticipated discharge date: 24-[address]: [facility] This dictation was prepared using [employer] voice recognition software. Though every attempt is made to correct errors during dictation some may still exist. Objective - Vital Signs Vital signs: Vital Signs Temp 98 F 05/28/23 08:00 Pulse 103 H 05/28/23 16:00 Resp 16 05/28/23 16:00 BP 100/66 05/28/23 16:00 Pulse Ox 93 L 05/28/23 16:00 FiO2 Intake & Output 05/27/23 05/28/23 05/28/23 18:59 06:59 18:59 Intake Total 0 Output Total 1400 900 200 Balance -1400 -900 -200 Weight 91.9 kg 90.6 kg Intake: Oral 0 Output: Urine 1400 900 200 Other: Voiding Method Indwelling Catheter Indwelling Catheter Indwelling Catheter # Voids 1 - Labs CBC & Chem 7: 05/27/23 08:52 05/28/23 08:04 Labs: Abnormal Lab Results - Last 24 Hours (Table) 05/27/23 05/28/23 Range/Units 20:16 08:04 Sodium 133 L (137-145) mmol/L Chloride 94 L (98-107) mmol/L BUN 28 H (9-20) mg/dL Glucose 116 H (74-99) mg/dL POC Glucose (mg/dL) 113 H (70-110) mg/dL Calcium 7.7 L (8.4-10.2) mg/dL
[2023-05-28 21:16] LABS: Glucose,Whole Blood 118 mg/dL (70-110)
[2023-05-29 06:07] LABS: Glucose,Whole Blood 84 mg/dL (70-110)
[2023-05-29] MEDS: DAPAGLIFLOZIN PROPANEDIOL 10 MG TABLET PO SCH (08:55)
[2023-05-29] MEDS: METOPROLOL TARTRATE 25 MG TAB PO SCH (08:55)
[2023-05-29] MEDS: APIXABAN 5 MG TAB PO SCH (08:55)
[2023-05-29] MEDS: SPIRONOLACTONE 25 MG TAB PO SCH (08:55)
[2023-05-29] MEDS: CLOTRIMAZOLE 1% CREAM 30 GM TUBE TOPICAL SCH (08:56)
[2023-05-29] MEDS: FUROSEMIDE 10 MG/ML 4 ML VIAL IV SCH (08:56)
[2023-05-29 10:41] LABS: HCT 35.4 % (39.0-53.0); HGB 11.7 gm/dL (13.0-17.5); MCH 33.6 pg (25.0-35.0); MCHC 33.1 g/dL (31.0-37.0); MCV 101.5 fL (80.0-100.0); Macrocytosis Slight; Mean Platelet Volume 8.1; RBC 3.48 m/uL (4.30-5.90); WBC 3.7 k/uL (3.8-10.6)
[2023-05-29 10:52] LABS: African American GFR (CKD) 73 (>60 ml/min/1.73 sqM); Anion Gap 9 mmol/L; Blood Urea Nitrogen 31 mg/dL (9-20); Calcium 7.6 mg/dL (8.4-10.2); Carbon Dioxide 28 mmol/L (22-30); Chloride 96 mmol/L (98-107); Glucose 87 mg/dL (74-99); Non-African American GFR(CKD) 63 (>60 ml/min/1.73 sqM); Potassium 3.8 mmol/L (3.5-5.1); Sodium 133 mmol/L (137-145)
[2023-05-29 10:55] LABS: Platelet Count 81 k/uL (150-450)
[2023-05-29 12:05] LABS: Glucose,Whole Blood 88 mg/dL (70-110)
[2023-05-29 13:32] VITALS: BP 107/76; PULSE 56; TEMP 97.6
--- NOTE | 2023-05-29 13:51 | P.PN ---
Subjective HISTORY OF PRESENT ILLNESS: The patient is an 82-year-old gentleman with known coronary artery disease documented on heart catheterization in 2017 as well as hypertension and dyslipidemia the patient also is on oral anticoagulation for unknown reason he does not recall being diagnosed with atrial fibrillation or any history of DVT or PE, presented to the hospital complaining of shortness of breath. He describes progressive exertional dyspnea and progressive bilateral lower extremity edema. He stated that he was receiving oral diuretics and that has been stopped recently. He stated that he was diagnosed with heart failure before. He stated that he was compliant with his medications and compliant was low sodium diet. He is not quite sure gain any weight. He reports no pain in the chest and no dizziness or lightheadedness and no feeling of heart racing or fluttering and no presyncope or syncope. Other workup was performed including the proBNP came to be needed and chest x-ray showed findings consistent with heart failure. D-dimer was abnormal but CT of the chest did not show any acute abnormalities. The rest of the blood work came in to be unremarkable. The EKG showed sinus mechanism with low-voltage QRS and sinus tachycardia. The patient currently is on Lasix. Examination is remarkable for severe bilateral lower extremity is pitting edema and chronic skin changes and redness in the legs and also bilateral rhonchi and also a systolic murmur at the right and left upper sternal border 05/24/2023 The patient was seen and evaluated this morning. He stated that he is feeling better. He still have bilateral lower extremity edema and when he presented he was having right more than left heart failure. The shortness of breath is improved as well. No pain in the chest. Kidney function remains stable. Pressure is marginal. I'm going to decrease the dose of Lasix just because of the low blood pressure and also decrease the dose of Aldactone. Continue monitor the kidney function and electrolytes and monitor the patient for additional 24 hours. The examination is remarkable for at least moderate bilateral lower extremity is pitting edema. The echo reveals normal LV systolic function was mild to moderate mitral regurgitation 05/26/23 Patient appears more volume overloaded as compared to yesterday. His kidney function is stable with creatinine of 1.09. Echo showed EF of 50-50%, [id number] MR 05/27/2023 patient examined this morning at the bedside. Patient currently denies chest pain or pressure. He reports mild shortness of breath with a frequent cough. He continues to have lower extremity edema, although improved from yesterday. Vital signs are stable. Telemetry reveals atrial fibrillation with controlled ventricular rate. 05/28/2023 Patient examined this morning at the bedside. Patient currently denies chest pain or pressure. He reports mild shortness of breath. Patient remains on IV Lasix. IV Lasix was increased yesterday to every 8 hours per primary medicine. Patient's Barreto catheter has been discontinued and patient is voiding per urinal. Urine output over the last 24 hours is 2300 mL. Kidney function remains stable. Creatinine 1.03. 05/29/2023 Patient examined this morning at the bedside. Patient denies chest pain or pressure. He denies shortness of breath. He remains on IV Lasix 40 mg 212 hours. Vital signs are stable. PHYSICAL EXAM: VITAL SIGNS: Reviewed. GENERAL: Well-developed in no acute distress. NECK: Supple. No JVD or thyromegaly LUNGS: Respirations even and unlabored. Lungs diminished bilaterally. HEART: Regular rate and rhythm. S1 and S2 heard. EXTREMITIES: Normal range of motion. No clubbing or cyanosis. Peripheral pulses intact. Bilateral lower extremity edema noted, improved ASSESSMENT: Acute heart failure with preserved ejection fraction Paroxysmal atrial fibrillation, currently rate controlled Coronary artery disease Hypertension Hyperlipidemia PLAN: Discontinue IV Lasix. Begin Bumex 1 mg twice a day. Daily weights, accurate I&O, and monitoring of kidney function Continue additional cardiac medications He is currently stable from a cardiac perspective Further recommendations pending patient's course Nurse practitioner note has been reviewed by physician. Signing provider agrees with the documented findings, assessment, and plan of care. Objective - Vital Signs Vital signs: Vital Signs Temp 97.6 F 05/29/23 11:50 Pulse 56 L 05/29/23 11:50 Resp 16 05/29/23 11:50 BP 107/76 05/29/23 11:50 Pulse Ox 98 05/29/23 11:50 FiO2 Intake & Output 05/28/23 05/29/23 05/29/23 18:59 06:59 18:59 Intake Total 540 238 Output Total 200 400 300 Balance -200 140 -62 Weight 113 kg Intake: Oral 540 238 Output: Urine 200 400 300 Other: Voiding Method Indwelling Catheter Urinal Urinal # Voids 1 - Labs CBC & Chem 7: 05/29/23 10:02 05/29/23 10:02 Labs: Abnormal Lab Results - Last 24 Hours (Table) 05/28/23 05/29/23 05/29/23 Range/Units 21:14 10:02 10:02 WBC 3.7 L (3.8-10.6) k/uL RBC 3.48 L (4.30-5.90) m/uL Hgb 11.7 L (13.0-17.5) gm/dL Hct 35.4 L (39.0-53.0) % MCV 101.5 H (80.0-100.0) fL Plt Count 81 L (150-450) k/uL Sodium 133 L (137-145) mmol/L Chloride 96 L (98-107) mmol/L BUN 31 H (9-20) mg/dL POC Glucose (mg/dL) 118 H (70-110) mg/dL Calcium 7.6 L (8.4-10.2) mg/dL
--- NOTE | 2023-05-29 14:33 | P.DS ---
Providers Date of admission: 05/22/23 15:05 Expected date of discharge: 05/29/23 Attending physician: Pau Ascencio DO Consults: 05/22/23 15:44 Consult Physician Urgent Consulting Provider: Justen Ricardo Consult Reason/Comments: CHF exacerbation, tachycardia Do you want consulting provider notified?: Yes 05/22/23 18:17 Consult Physician Routine Consulting Provider: Claire Oconnor Consult Reason/Comments: Pt follows you in office, here with decompensated cirrhosis w/ fluid overlo Do you want consulting provider notified?: Yes Primary care physician: Claire Oconnor Hospital Course: Discharge Diagnosis: Decompensated stated nonalcoholic cirrhosis Generalized debility secondary to multiple medical comorbidities resulting in physical deconditioning Pancytopenia related to cirrhosis Decompensated diastolic congestive heart failure with preserved ejection fraction at 50-55% Sinus tachycardia, resolved CAD status post stenting Paroxysmal atrial fibrillation Hypertension Hyperlipidemia Tinea Corporis Urinary retention, resolved Hospital Course: Patient is an 82-year-old male with known coronary artery disease status post stenting, A. fib on anticoagulation with Eliquis, hypertension, dyslipidemia, nonalcoholic liver cirrhosis, and peripheral vascular disease who initially presented to the emergency department with complaints of lower extremity and scrotal edema. In the emergency department his vitals are within normal limits. EKG was rectal for sinus tachycardia. CT head showed age-related atrophy with chronic small vessel ischemic changes but no acute intracranial process. Chest x-ray showed increased basilar density concerning for atelectasis and effusion. Labs were remarkable for hemoglobin 12.2, platelets 114, INR 1.4, d-dimer 5.07, T bili of 2.7 and lactic acid of 2.3. Urinalysis was negative for signs of infection. Influenza A/B/RSV/COVID-19 testing was negative. Patient was subsequently admitted and started on IV diuresis. Pulmonary, GI, and cardiology were consulted. Meld score was noted to be 14. Echocardiogram came back with ejection fraction 50-55%, with mild to moderate mitral regurgitation. He maintained on IV diuresis and once fluid status had improved was determined stable for transition to oral lasix. Given is significant cirrhosis he is not a good candidate for SGLT2 inhibitor as with one dose fasting sugar was 87 and he likely has some impaired gluoneogensis he is also not a candidate for ARNI/ARB due to low BP in light of this will deviate from the GDMT recommendation. He is on MRA and tolerating well. He will be discharged to SNF. Follow-up: Dr. Ricardo in 2 weeks, Dr. Randle in 2 weeks, Dr Oconnor in 1-2 days Lotrimin cream BID for 10 additional days to affected area on abdmone, Patient seen and examined at bedside. He is doing well without complaints other than weakness and being tired. Vital signs reviewed and stable. General: nontoxic, no distress, appears at stated age Cardiovascular: S1S2 reg, no murmur, positive posterior tibial pulse bilateral, Lungs: CTA bilateral, no rhonchi, no rales , no accessory muscle use Abdominal: soft, nontender to palpation, no guarding, no appreciable organomegaly Ext: no gross muscle atrophy, 4+ edema b/l lower extremities (improved), no contractures Neuro: CN II-XI grossly intact, no focal neuro deficits Psych: Alert, oriented, appropriate affect A total of 37 minutes of time were spent preparing this complex discharge summary. Patient was discharged on 05/29/23. This dictation was prepared using [employer] voice recognition software. Though every attempt is made to correct errors during dictation some may still exist. Plan - Discharge Summary Discharge Rx Participant: No New Discharge Prescriptions: New Spironolactone [Aldactone] 25 mg PO DAILY tab Bumetanide [BUMEX] 1 mg PO BID@0900,1600 tab Clotrimazole Cream [Lotrimin Cream] 1 applic TOPICAL BID 10 Days each Continue Metoprolol Tartrate [Lopressor] 25 mg PO BID Apixaban [Eliquis] 5 mg PO BID Albuterol Sulfate [Proventil Hfa] 2 puff INHALATION RT-Q4H PRN PRN Reason: Shortness Of Breath Discontinued Spironolactone [Aldactone] 25 mg PO DAILY Discharge Medication List Albuterol Sulfate [Proventil Hfa] 2 puff INHALATION RT-Q4H PRN 05/22/23 [History] Apixaban [Eliquis] 5 mg PO BID 05/22/23 [History] Metoprolol Tartrate [Lopressor] 25 mg PO BID 05/22/23 [History] Bumetanide [BUMEX] 1 mg PO BID@0900,1600 tab 05/29/23 [Rx] Clotrimazole Cream [Lotrimin Cream] 1 applic TOPICAL BID 10 Days each 05/29/23 [Rx] Spironolactone [Aldactone] 25 mg PO DAILY tab 05/29/23 [Rx] Follow up Appointment(s)/Referral(s): Claire Oconnor MD [Primary Care Provider] - 1-2 days Justen Ricardo MD [STAFF PHYSICIAN] - 1 Week Meme Randle MD [STAFF PHYSICIAN] - 2 Weeks Activity/Diet/Wound Care/Special Instructions: Activity: as tolerated, fall precautions Diet: 2 gram sodium diets, 1.5L fluid restriction Special Instructions: KAYDEN wrap b/l LE when up and ambulating CBC and CMP in 3 days DX: pancytopenia, cirrhosis, GABINO Daily weights. Discharge Disposition: TRANSFER TO SNF/ECF
[2023-05-29] MEDS ORDERED: BUMETANIDE 1 MG TAB PO SCH (16:00)
== END 2023-05-29 15:19 | DRG 441 ==
LOC: EC 08:59 → 3SCARD 15:05
PROVIDERS: ADMIT Internal Medicine; ATTEND Internal Medicine
DX: K75.81 Nonalcoholic steatohepatitis (NASH) (principal); I50.33 Acute on chronic diastolic (congestive) heart failure; D61.818 Other pancytopenia; R18.8 Other ascites; M10.9 Gout, unspecified; R33.9 Retention of urine, unspecified; K44.9 Diaphragmatic hernia without obstruction or gangrene; K74.69 Other cirrhosis of liver; I50.82 Biventricular heart failure; I11.0 Hypertensive heart disease with heart failure; Z87.891 Personal history of nicotine dependence; Z11.52 Encounter for screening for COVID-19; E03.9 Hypothyroidism, unspecified; R53.81 Other malaise; I73.9 Peripheral vascular disease, unspecified; I25.10 Atherosclerotic heart disease of native coronary artery without angina pectoris; Z95.5 Presence of coronary angioplasty implant and graft; I48.0 Paroxysmal atrial fibrillation; Z79.01 Long term (current) use of anticoagulants; Z90.5 Acquired absence of kidney; Z85.528 Personal history of other malignant neoplasm of kidney; B35.4 Tinea corporis; E78.5 Hyperlipidemia, unspecified; I34.0 Nonrheumatic mitral (valve) insufficiency; N48.89 Other specified disorders of penis; N50.89 Other specified disorders of the male genital organs; Z79.899 Other long term (current) drug therapy; Z91.148 Patient's other noncompliance with medication regimen for other reason
CPT/HCPCS: 36415; 51702; 51798; 70450; 71046; 71275; 80048; 80053; 81003; 82140; 83605; 83735; 83880; 84484; 85025; 85027; 85379; 85610; 85730; 87636; 93005; 93306; 96374; 96376; 99285